=== PATIENT | female | born 1935 | race Caucasian/White ===

== ENCOUNTER → 2017-03-18 | Outpatient (CLI) | payer MEDICARE ==
--- NOTE | 2017-03-18 08:26 | CT ---
EXAMINATION TYPE: CT brain wo con DATE OF EXAM: 03/18/2017 COMPARISON: 04/05/2015 HISTORY: Syncope and Pain in left hip CT DLP: 978.[address] of the brain was performed. The ventricles, basal cisterns and sulci overlying the cerebral convexities demonstrate mild enlargem ent. There is no evidence for intracranial hemorrhage or sulcal effacement. There is decreased attenuation about the periventricular white matter and deep white matter of both c erebral hemispheres, compatible with chronic small vessel ischemia. Differential diagnosis does inclu de demyelination. No mass effects are seen.No midline shift. Osseous calvarium is intact. If symptoms persist consider MRI. IMPRESSION: 1. Age related atrophic and chronic small vessel ischemic change without acute intracranial process s een at this time.
[2017-03-18 08:31] LABS: Basophils # (A) 0.1 k/uL (0-0.2); Basophils % (A) 1 %; CHCM 31.9; Eosinophils # (A) 0.2 k/uL (0-0.7); Eosinophils % (A) 3 %; HCT 37.2 % (34.0-46.0); HDW 2.47; HGB 12.1 gm/dL (11.4-16.0); Luc # (Auto) 0.14; Luc % (Auto) 3; Lymphocytes # (A) 1.7 k/uL (1.0-4.8); Lymphocytes % (A) 29 %; MCH 30.8 pg (25.0-35.0); MCHC 32.6 g/dL (31.0-37.0); MCV 94.3 fL (80.0-100.0); Mean Platelet Volume 7.5; Monocytes # (A) 0.3 k/uL (0-1.0); Monocytes % (A) 5 %; Neutrophils # (A) 3.4 k/uL (1.3-7.7); Neutrophils % (A) 59 %; RBC 3.94 m/uL (3.80-5.40); WBC 5.8 k/uL (3.8-10.6); WBC (Perox) 5.69
--- NOTE | 2017-03-18 08:57 | XR ---
EXAMINATION TYPE: XR lumbar spine 2 or 3V DATE OF EXAM ORDERED: 03/18/2017 HISTORY: M54.5 low back pain. COMPARISON: None. FINDINGS: There is a mild levoscoliosis. Vertebral body height and alignment are maintained. There is generalized osteopenia likely on the bas is of osteoporosis. No fractures are seen. There is no spondylolysis or spondylolisthesis. The spaces are reasonably well-maintained. The pedicles are intact. IMPRESSION: 1. NO ACUTE OSSEOUS LESION. 2. MINIMAL LEVOSCOLIOSIS.
--- NOTE | 2017-03-18 09:12 | US ---
EXAMINATION TYPE: US carotid duplex BILAT DATE OF EXAM: 03/18/2017 COMPARISON: NONE CLINICAL HISTORY: R55 syncope and collapse. Left endarterectomy 2010, dizziness, slurred speech, TIA, imbalance EXAM MEASUREMENTS: RIGHT: Peak Systolic Velocity (PSV) cm/sec ----- Right CCA: 57.0 ----- Right ICA: 344.9 ----- Right ECA: 169.8 ICA/CCA ratio: 6.0 RIGHT: End Diastole cm/sec ----- Right CCA: 15.3 ----- Right ICA: 96.6 ----- Right ECA: 10.9 LEFT: Peak Systolic Velocity (PSV) cm/sec ----- Left CCA: 81.3 ----- Left ICA: 206.0 ----- Left ECA: 164.7 ICA/CCA ratio: 2.5 LEFT: End Diastole cm/sec ----- Left CCA: 18.8 ----- Left ICA: 49.9 ----- Left ECA: 9.1 VERTEBRALS (direction of flow): Right Vertebral: Antegrade Left Vertebral: Antegrade Severe plaque noted right bifurcation. Moderate plaque left bifurcation and left CCA. Increased velo cities bilateral ICA's, greater on the right. Mildly increased velocities bilateral ECA's IMPRESSION: 1. GREATER THAN 70% BY DIAMETER STENOSIS, BOTH PROXIMAL ICAS. 2. ELEVATED ECA FLOW BILATERALLY. Criteria for Assigning % of Stenosis / Diameter reduction (Estimation based on the indirect measurements of the internal carotid artery velocities (ICA PSV). 1. Normal (no stenosis)=ICA PSV < 125 cm/s: ratio < 2.0: ICA EDV<40 cm/s. 2. Less than 50% stenosis=ICA PSV < 125 cm/s: ratio < 2.0: ICA EDV<40 cm/s. 3. 50 to 69% stenosis=ICA PSV of 125 to 230 cm/s: ration 2.0 ? 4.0: ICA EDV 40-100 cm/s. 4. Greater than 70% stenosis to near occlusion= ICA PSV > 230 cm/s: ratio > 4.0: ICA EDV > 100 cm/s. 5. Near occlusion= ICA PSV velocities may be low or undetectable: variable ratio and ICA EDV. 6. Total occlusion=unable to detect flow.
[2017-03-18 11:40] LABS: ALT 22 U/L (9-52); AST 26 U/L (14-36); Alkaline Phosphatase 56 U/L (38-126); Anion Gap 8 mmol/L; Blood Urea Nitrogen 16 mg/dL (7-17); Calcium 9.8 mg/dL (8.4-10.2); Carbon Dioxide 25 mmol/L (22-30); Chloride 113 mmol/L (98-107); Cholesterol 179 mg/dL (<200); Glucose 89 mg/dL (74-99); HDL Cholesterol 61 mg/dL (40-60); Non-African American GFR(MDRD) >60 (>60 ml/min/1.73 sqM); Potassium 5.4 mmol/L (3.5-5.1); Sodium 146 mmol/L (137-145); Total Bilirubin 0.5 mg/dL (0.2-1.3); Total Protein 7.1 g/dL (6.3-8.2); Triglycerides 96 mg/dL (<150)
[2017-03-18 12:40] LABS: Vitamin B12 592 pg/mL
== END | disposition home or self-care (01) ==
LOC: RADUSMAIN 07:52
PROVIDERS: ATTEND Family Medicine
DX: I65.23 Occlusion and stenosis of bilateral carotid arteries (principal); G31.9 Degenerative disease of nervous system, unspecified; I67.82 Cerebral ischemia; M41.86 Other forms of scoliosis, lumbar region; M25.552 Pain in left hip; M54.5 Low back pain
CPT/HCPCS: 36415; 70450; 72100; 80053; 80061; 82607; 82746; 84443; 85025; 93880

== ENCOUNTER → 2017-04-29 | Outpatient (CLI) | payer MEDICARE ==
[2017-04-29 10:04] LABS: Blood Urea Nitrogen 14 mg/dL (7-17); Non-African American GFR(MDRD) >60 (>60 ml/min/1.73 sqM)
--- NOTE | 2017-04-29 11:04 | CT ---
EXAMINATION TYPE: CT angio neck DATE OF EXAM: 04/29/2017 HISTORY: Bilateral carotid stenosis COMPARISON: Carotid ultrasound dated 03/18/2017 CT DLP: 330 mGycm. Automated Exposure Control for Dose Reduction was Utilized. TECHNIQUE: CTA scan of the neck is performed with IV Contrast, patient injected with 65 mL of Omnipa que 350, axial images are obtained, coronal and sagittal reformatted images are reviewed. Three-D rec onstructed images are created on an independent workstation and reviewed. FINDINGS: Right vertebral artery is dominant and widely patent. Suggestion of possible stent at the o rigin of the left common carotid artery which appears to be patent. Mild atherosclerotic plaque invol ving the brachiocephalic artery, proximal, right carotid artery and right subclavian artery. Appears to be previous surgery involving the carotid to subclavian bypass with occlusion of the [place] origin of the subclavian artery. Mild atherosclerotic disease of the distal left common carotid artery. There is mild disease at the l eft carotid bifurcation and proximal left ICA. No significant stenosis. There is extensive atherosclerotic plaque involving the carotid bulb and bifurcation on the right res idual luminal diameter measures 1.4 mm. Findings are suggestive severe approximate 75-80% stenosis. Hypertrophic and degenerative change of the cervical spine noted. Emphysematous changes involving the lung apices with biapical pleural thickening or scarring. IMPRESSION: 1. Severe approximately 80% stenosis proximal right ICA. 2. No significant hemodynamic stenosis involving the proximal left ICA 3. Appears to be previous surgery involving the carotid to subclavian bypass with occlusion of the na tive origin of the subclavian artery. Suspected graft appears to be patent. Correlate with surgical h istory. 4. Appears to be a stent at the origin of the left common carotid artery appears to enhance normally with left lateral eccentric intimal thickening but no significant stenosis.
== END | disposition home or self-care (01) ==
LOC: RADCTMAIN 09:33
PROVIDERS: ATTEND Thoracic Surgery (Cardiothoracic Vascular Surgery)
DX: I65.23 Occlusion and stenosis of bilateral carotid arteries (principal); I74.8 Embolism and thrombosis of other arteries; Z95.1 Presence of aortocoronary bypass graft
CPT/HCPCS: 82565; 84520; 70498; 36415; Q9967

== ENCOUNTER → 2017-06-08 | Outpatient (CLI) | payer MEDICARE ==
[2017-06-08 09:04] LABS: EKG EKG PERFORMED
[2017-06-08 10:05] LABS: Basophils % (A) 1 %; CH 30.8; CHCM 31.8; Eosinophils # (A) 0.1 k/uL (0-0.7); Eosinophils % (A) 2 %; HDW 2.39; HGB 13.1 gm/dL (11.4-16.0); Luc # (Auto) 0.14; Luc % (Auto) 3; Lymphocytes # (A) 1.6 k/uL (1.0-4.8); Lymphocytes % (A) 31 %; MCH 30.5 pg (25.0-35.0); MCHC 31.3 g/dL (31.0-37.0); MCV 97.4 fL (80.0-100.0); Mean Platelet Volume 8.1; Monocytes # (A) 0.3 k/uL (0-1.0); Monocytes % (A) 5 %; Neutrophils # (A) 3.1 k/uL (1.3-7.7); Neutrophils % (A) 59 %; RBC 4.31 m/uL (3.80-5.40); RDW 14.7 % (11.5-15.5); WBC 5.3 k/uL (3.8-10.6); WBC (Perox) 5.68
[2017-06-08 10:08] LABS: Prothrombin Time 10.6 sec (9.0-12.0)
[2017-06-08 10:25] LABS: Anion Gap 8 mmol/L; Blood Urea Nitrogen 11 mg/dL (7-17); Carbon Dioxide 24 mmol/L (22-30); Chloride 109 mmol/L (98-107); Glucose 88 mg/dL (74-99); Non-African American GFR(MDRD) >60 (>60 ml/min/1.73 sqM); Potassium 4.8 mmol/L (3.5-5.1); Sodium 141 mmol/L (137-145)
== END | disposition home or self-care (01) ==
LOC: LABPAT 08:46
PROVIDERS: ATTEND Thoracic Surgery (Cardiothoracic Vascular Surgery)
DX: Z01.810 Encounter for preprocedural cardiovascular examination (principal); I65.21 Occlusion and stenosis of right carotid artery; I10 Essential (primary) hypertension; Z79.01 Long term (current) use of anticoagulants
CPT/HCPCS: 36415; 80051; 82565; 82947; 84520; 85025; 85610; 85730; 87077; 87086; 87186; 93005

== ENCOUNTER → 2017-07-16 | Outpatient (CLI) | payer MEDICARE ==
[2017-07-16 10:15] LABS: Basophils # (A) 0.1 k/uL (0-0.2); Basophils % (A) 1 %; CH 29.9; CHCM 30.3; Eosinophils # (A) 0.2 k/uL (0-0.7); Eosinophils % (A) 3 %; HCT 41.3 % (34.0-46.0); HDW 2.43; HGB 12.8 gm/dL (11.4-16.0); Hypochromasia Moderate; Luc # (Auto) 0.13; Luc % (Auto) 2; Lymphocytes # (A) 1.5 k/uL (1.0-4.8); Lymphocytes % (A) 25 %; MCH 30.9 pg (25.0-35.0); MCV 99.4 fL (80.0-100.0); Mean Platelet Volume 7.3; Monocytes # (A) 0.3 k/uL (0-1.0); Monocytes % (A) 5 %; Neutrophils % (A) 65 %; RBC 4.15 m/uL (3.80-5.40); RDW 14.3 % (11.5-15.5); WBC 6.2 k/uL (3.8-10.6); WBC (Perox) 6.51
[2017-07-16 10:26] LABS: Partial Thromboplastin Time 25.8 sec (22.0-30.0); Prothrombin Time 10.2 sec (9.0-12.0)
[2017-07-16 10:44] LABS: Anion Gap 12 mmol/L; Blood Urea Nitrogen 12 mg/dL (7-17); Carbon Dioxide 23 mmol/L (22-30); Chloride 108 mmol/L (98-107); Glucose 89 mg/dL (74-99); Potassium 4.9 mmol/L (3.5-5.1); Sodium 143 mmol/L (137-145)
[2017-07-16 10:45] LABS: Non-African American GFR(MDRD) >60 (>60 ml/min/1.73 sqM)
== END | disposition home or self-care (01) ==
LOC: LABPAT 09:04
PROVIDERS: ATTEND Thoracic Surgery (Cardiothoracic Vascular Surgery)
DX: Z01.812 Encounter for preprocedural laboratory examination (principal); I65.21 Occlusion and stenosis of right carotid artery; Z79.01 Long term (current) use of anticoagulants
CPT/HCPCS: 80051; 82565; 82947; 84520; 85025; 85610; 85730; 86850; 86900; 86901; 87086

== ENCOUNTER 2017-07-25 10:55 | Inpatient (IN) | payer MEDICARE ==
[2017-07-07 15:00] VITALS: BMI 22.6
[~2017-07-25 10:55] MED LIST: DEXAMETHASONE SOD PHOSPHATE 10 MG/ML 1 ML VIAL IV ONE; HYDROmorphone 0.5 MG/0.5 ML SYRINGE IVP PRN; LACTATED RINGERS 1,000 ML IV SCH; NITROGLYCERIN-D5W PMX 50 MG in DEXTROSE/WATER 1 250ML.BAG IV SCH; ONDANSETRON 4 MG/2 ML VIAL IVP ONE; PHENYLEPHRINE 40 MG in SODIUM CHLORIDE 0.9% 250 ML IV SCH
[2017-07-25] MEDS ORDERED: LIDOCAINE 1% 20 ML VIAL (10MG/ML) FOR IV START INTRADERMA ONE (11:36)
[2017-07-25] MEDS ORDERED: GELATIN SPONGE,ABSORB (LARGE) 1 EACH SPONGE TOPICAL ONE (13:21)
[2017-07-25] MEDS ORDERED: THROMBIN (BOVINE) 5,000 UNIT VIAL TOPICAL ONE ×2 (13:21)
[2017-07-25] MEDS ORDERED: MIDAZOLAM 2 MG/2 ML VIAL ONE (13:27)
[2017-07-25] MEDS ORDERED: GLYCOPYRROLATE 0.2 MG/ML 2 ML VIAL ONE (13:27)
[2017-07-25] MEDS ORDERED: HEPARIN SODIUM,PORCINE 10,000 UNIT/ML 1 ML VIAL ONE (13:27)
[2017-07-25] MEDS ORDERED: ROCURONIUM BROMIDE 10 MG/ML 10 ML VIAL IV ONE (13:27)
[2017-07-25] MEDS ORDERED: PROPOFOL 10 MG/ML 20 ML VIAL IV ONE (13:27)
[2017-07-25] MEDS ORDERED: fentaNYL (PF) 50 MCG/ML 2 ML AMP ONE (13:27)
[2017-07-25] MEDS: ceFAZolin 2 GM in SODIUM CHLORIDE 0.9% 100 ML IVPB ONE ×2 (13:27→13:55)
[2017-07-25] MEDS ORDERED: NEOSTIGMINE 1 MG/ML 10 ML VIAL ONE (13:27)
[2017-07-25] MEDS ORDERED: HYDROmorphone (PF) 1 MG/ML ONE (13:27)
[2017-07-25] MEDS ORDERED: SUCCINYLCHOLINE CHLORIDE 100 MG/5 ML SYR IV ONE (13:27)
[2017-07-25] MEDS ORDERED: LIDOCAINE 1% INJ 10MG/ML (20 ML MDV) ONE (13:27)
[2017-07-25] MEDS ORDERED: hydrALAZINE HCL 20 MG/ML 1 ML VIAL ONE (13:27)
[2017-07-25] MEDS ORDERED: METOPROLOL TARTRATE 5 MG/5 ML VIAL IVP ONE (13:27)
--- NOTE | 2017-07-25 13:40 | P.OP ---
Date of Procedure: 07/25/17 Preoperative Diagnosis: Right internal carotid artery stenosis Postoperative Diagnosis: Right internal carotid artery stenosis Procedure(s) Performed: Right internal carotid endarterectomy and Dacron patch angioplasty Anesthesia: RENETTAA Surgeon: Wolfgang Baugh Estimated Blood Loss (ml): 50 Pathology: other (Atherosclerotic plaque) Condition: stable Disposition: ICU Description of Procedure: Patient was brought electively to the operating room for right internal carotid artery endarterectomy she was prepped and draped in usual sterile Betadine fashion under general anesthesia an incision on the anterior border the sternocleidomastoid was carried down through skin and subcutaneous tissue and electrocautery was utilized for hemostasis heparin was administered and control of the carotid artery was then affected the carotid artery was opened through the high-grade stenosis in a meticulous carotid endarterectomy was performed using a Pearcy dural elevator and a fine hemostat loupe magnification was utilized throughout the procedure and intimal debris was completely removed backbleeding and venting the external carotid artery as well we close the endarterectomized vessel with a Hemashield background patch utilizing 6-0 Prolene suture we backbled and vented the vessel of any potential air or debris restored blood flow to the brain throughout the procedure the patient had neural monitoring with S SPEP and EEG by [employer] patient tolerated these procedures well and the neck was closed in layers with Vicryl sutures and Steri- Strips C end of an operative report thank you for typing
[2017-07-25] MEDS ORDERED: SODIUM CHLORIDE 0.9% 500 ML with HEPARIN SODIUM,PORCINE 5,000 UNIT IV ONE ×2 (13:55)
[2017-07-25] MEDS ORDERED: LACTATED RINGERS 1,000 ML IV ONE ×2 (14:16→15:20)
[2017-07-25] MEDS ORDERED: ACETAMINOPHEN TAB 325 MG TAB PO PRN (14:57)
[2017-07-25] MEDS ORDERED: MAG HYDROX/AL HYDROX/SIMETH 30 ML CUP PO PRN (14:57)
[2017-07-25] MEDS ORDERED: BENZOCAINE/MENTHOL LOZENG 1 EACH LOZENGE MUCOUS MEM PRN (14:57)
[2017-07-25] MEDS ORDERED: TRIMETHOBENZAMIDE 100 MG/ML 2 ML VIAL IM PRN (14:57)
[2017-07-25] MEDS ORDERED: TEMAZEPAM 15 MG CAP PO PRN (14:57)
[2017-07-25 17:26] LABS: Glucose,Whole Blood 96 mg/dL (75-99)
[2017-07-25] MEDS: HEPARIN SODIUM,PORCINE 5,000 UNIT/ML 1 ML VIAL SQ SCH ×2 (17:29→23:55)
[2017-07-25] MEDS: DEXTROSE 5%-0.45% NACL 1,000 ML IV SCH ×2 (17:29→22:57)
[2017-07-25] MEDS: HYDROcodone/APAP 5-325MG 1 EACH TAB PO PRN (18:26)
[2017-07-25] MEDS: PRAVASTATIN SODIUM 20 MG TAB PO SCH (20:38)
[2017-07-25] MEDS ORDERED: LISINOPRIL 2.5 MG TAB PO SCH (21:00)
[2017-07-25] MEDS: ceFAZolin 2 GM in SODIUM CHLORIDE 0.9% 100 ML IVPB SCH (21:58)
[2017-07-25] MEDS: MORPHINE SULFATE 2 MG/ML SYRINGE IVP PRN (21:58)
[2017-07-25] MEDS ORDERED: SODIUM CHLORIDE 0.9% 500 ML IV ONE (22:30)
[2017-07-26 04:21] LABS: Basophils % (A) 0 %; CH 30.9; CHCM 31.9; Eosinophils % (A) 0 %; HCT 32.6 % (34.0-46.0); HDW 2.44; HGB 10.3 gm/dL (11.4-16.0); Luc # (Auto) 0.09; Luc % (Auto) 1; Lymphocytes # (A) 0.9 k/uL (1.0-4.8); Lymphocytes % (A) 8 %; MCH 30.9 pg (25.0-35.0); MCHC 31.7 g/dL (31.0-37.0); MCV 97.4 fL (80.0-100.0); Mean Platelet Volume 8.1; Monocytes # (A) 0.4 k/uL (0-1.0); Monocytes % (A) 4 %; Neutrophils # (A) 9.2 k/uL (1.3-7.7); Neutrophils % (A) 87 %; RBC 3.35 m/uL (3.80-5.40); RDW 14.9 % (11.5-15.5); WBC 10.6 k/uL (3.8-10.6); WBC (Perox) 11.16
[2017-07-26 04:33] LABS: ALT 28 U/L (9-52); AST 20 U/L (14-36); Alkaline Phosphatase 53 U/L (38-126); Anion Gap 5 mmol/L; Blood Urea Nitrogen 10 mg/dL (7-17); Calcium 8.3 mg/dL (8.4-10.2); Carbon Dioxide 22 mmol/L (22-30); Chloride 109 mmol/L (98-107); Glucose 155 mg/dL (74-99); Non-African American GFR(MDRD) >60 (>60 ml/min/1.73 sqM); Potassium 4.3 mmol/L (3.5-5.1); Sodium 136 mmol/L (137-145); Total Bilirubin 0.3 mg/dL (0.2-1.3); Total Protein 5.3 g/dL (6.3-8.2)
[2017-07-26] MEDS: DEXTROSE 5%-0.45% NACL 1,000 ML IV SCH ×2 (04:37→14:08)
[2017-07-26] MEDS: LEVOTHYROXINE 25 MCG TAB PO SCH (05:48)
[2017-07-26] MEDS: ceFAZolin 2 GM in SODIUM CHLORIDE 0.9% 100 ML IVPB SCH (05:48)
[2017-07-26] MEDS: HYDROcodone/APAP 5-325MG 1 EACH TAB PO PRN ×3 (06:27→18:19)
--- NOTE | 2017-07-26 08:08 | P.PN ---
Subjective Progress Note Date: 07/26/17 Principal diagnosis: Right internal carotid artery stenosis, hypertension, hyperlipidemia, hypothyroidism, GERD, chronic obstructive pulmonary disease, history of coronary artery disease status post coronary artery bypass grafting 5 in 1999, history of non-STEMI myocardial infarction in 2015 and nicotine dependence. POD #1 right internal carotid endarterectomy with Dacron patch angioplasty. Patient is currently sitting in bed eating her breakfast. She is complaining of some pain to her right neck incision rated 3 out of 10 on the pain scale. No acute distress. She reports she ambulated in the ICU hallway this a.m. which was tolerated well. She is anxious to go home. Objective - Vital Signs Vital signs: Vital Signs Temp 97.9 F 07/26/17 04:00 Pulse 59 L 07/26/17 07:00 Resp 12 07/26/17 07:00 BP 129/49 07/26/17 07:00 Pulse Ox 100 07/26/17 07:00 Intake & Output 07/25/17 07/26/17 07/26/17 18:59 06:59 18:59 Intake Total 2676 1990 245 Output Total 510 905 Balance 2166 1085 245 Weight 61.2 kg Intake: IV 2676 1750 125 Dextrose 5%-0.45% NaCl 1, 75 1050 125 000 ml @ 125 mls/hr IV . Q8H DAWNA Rx#:[id number] Sodium Chloride 0.9% 500 500 ml @ 999 mls/hr IV .Q31M ONE Rx#:[id number] ceFAZolin 2 gm In Sodium 200 Chloride 0.9% 100 ml @ 100 mls/hr IVPB ONCE ONE Rx#:[id number] Oral 240 120 Output: Urine 460 905 Estimated Blood Loss 50 Other: Voiding Method Indwelling Catheter ABP, PAP, CO, CI - Last Documented Arterial Blood Pressure 141/37 - Constitutional General appearance: Present: cooperative, no acute distress - EENT Eyes: Present: PERRLA ENT: Present: hearing grossly normal - Neck Details: No JVD, no lymphadenopathy. - Respiratory Details: Lung sounds are essentially clear throughout, diminished bilateral bases. Respirations are symmetrical and nonlabored. She is achieving 750 mL on her incentive spirometry. Her oxygen saturation is are 98% on room air. - Cardiovascular Details: Regular rhythm and rate. S1 and S2 present, negative for S3, gallop or murmur. No edema present. Bedside telemetry showing normal sinus rhythm heart rate 67. Knee-high HARRIET hose and sequential compression devices in place to her bilateral lower extremities. - Gastrointestinal Gastrointestinal Comment(s): Abdomen is soft, nontender and nondistended. Hypoactive bowel sounds to all 4 abdominal quadrants. She is tolerating oral intake. - Genitourinary Genitourinary Comment(s): Adequate urine output, Cha catheter for accurate I&O. 585 ml of urine output in the last 8 hours. - Integumentary Integumentary Comment(s): Right neck incision clean dry and well approximated. Scant serosanguineous drainage. Steri-Strips in place to right neck incision. Integumentary: Present: normal, normal turgor - Neurologic Neurologic Comment(s): No focal deficits. Neurologic: Present: CNII-XII intact - Musculoskeletal Musculoskeletal: Present: gait normal, strength equal bilaterally - Psychiatric Psychiatric: Present: A&O x's 3, appropriate affect, intact judgment & insight - Allied health notes Allied health notes reviewed: nursing - Labs CBC & Chem 7: 07/26/17 04:00 07/26/17 04:00 Labs: Abnormal Lab Results - Last 24 Hours (Table) 07/26/17 07/26/17 Range/Units 04:00 04:00 RBC 3.35 L (3.80-5.40) m/uL Hgb 10.3 L (11.4-16.0) gm/dL Hct 32.6 L (34.0-46.0) % Neutrophils # 9.2 H (1.3-7.7) k/uL Lymphocytes # 0.9 L (1.0-4.8) k/uL Sodium 136 L (137-145) mmol/L Chloride 109 H (98-107) mmol/L Glucose 155 H (74-99) mg/dL Calcium 8.3 L (8.4-10.2) mg/dL Total Protein 5.3 L (6.3-8.2) g/dL Albumin 2.7 L (3.5-5.0) g/dL Assessment and Plan (1) Stenosis of right internal carotid artery Status: Acute (2) GERD (gastroesophageal reflux disease) Status: Acute (3) COPD (chronic obstructive pulmonary disease) Status: Acute (4) HTN (hypertension) Status: Acute (5) Hx of CABG Status: Acute (6) Hyperlipemia Status: Acute (7) Nicotine dependence Status: Acute Plan: 1. Continue aspirin, statin, Plavix, heparin subcu, and beta shobha. 2. Encourage incentive spirometer use every hour while awake. 3. Increase activity, ambulate in hallway. 4. GI/DVT prophylaxis. 5. Will monitor daily labs. 6. Discussed the importance of smoking cessation with the patient. 7. More recommendations as patient progresses. Discharge planning in progress. Likely will discharged home today. Time with Patient: Greater than 30
[2017-07-26] MEDS: HEPARIN SODIUM,PORCINE 5,000 UNIT/ML 1 ML VIAL SQ SCH ×3 (08:16→23:16)
[2017-07-26] MEDS: ISOSORBIDE MONONITRATE ER 60 MG TAB.ER.24H PO SCH (08:17)
[2017-07-26] MEDS: ASPIRIN 81 MG PO SCH (08:17)
[2017-07-26] MEDS: CLOPIDOGREL 75 MG TAB PO SCH (08:18)
[2017-07-26] MEDS: METOPROLOL TARTRATE 25 MG TAB PO SCH (08:19)
[2017-07-26] MEDS: MORPHINE SULFATE 2 MG/ML SYRINGE IVP PRN ×2 (09:05→14:08)
--- NOTE | 2017-07-26 14:48 | P.CONS ---
History of Present Illness - Reason for Consult Management of hypertension. - History of Present Illness -year-old the female came in for elective right internal carotid endarterectomy , for right-sided carotid stenosis. Patient denied any fever, chills, nausea, vomiting, abdominal pain, dysuria. Patient is comparing of lightheadedness blood pressure is on the low normal systolics. Less trouble is being held the low blood pressure is expected post surgery. Review of Systems REVIEW OF SYSTEMS: CONSTITUTIONAL: No fever, no malaise, no fatigue. HEENT: No recent visual problems or hearing problems. Denied any sore throat. CARDIOVASCULAR: No chest pain, orthopnea, PND, no palpitations, no syncope. PULMONARY: No shortness of breath, no cough, no hemoptysis. GASTROINTESTINAL: No diarrhea, no nausea, no vomiting, no abdominal pain. Normoactive bowel sounds. NEUROLOGICAL: No headaches, no weakness, no numbness. HEMATOLOGICAL: Denies any bleeding or petechiae. GENITOURINARY: Denies any burning micturition, frequency, or urgency. MUSCULOSKELETAL/RHEUMATOLOGICAL: Denies any joint pain, swelling, or any muscle pain. ENDOCRINE: Denies any polyuria or polydipsia. The rest of the 14-point review of systems is negative. Past Medical History Past Medical History: Coronary Artery Disease (CAD), COPD, CVA/TIA, Deep Vein Thrombosis (DVT), Hyperlipidemia, Hypertension, Myocardial Infarction ([place]), Osteoarthritis (OA), Thyroid Disorder Additional Past Medical History / Comment(s): DVT leg in 1972, disc problems, ear problems & drainage @times, states has "left sided heart blockage and 2 holes in heart" Last Myocardial Infarction Date:: 05/11/15 History of Any Multi-Drug Resistant Organisms: None Reported Past Surgical History: Appendectomy, Coronary Bypass/CABG, Heart Catheterization , Heart Catheterization With Stent, Hysterectomy Additional Past Surgical History / Comment(s): left carotid endarterectomy, 5 vessel CABG 1999, nasal surg, polyps removed vocal cords, mult stents in heart Past Anesthesia/Blood Transfusion Reactions: Previous Problems w/ Anesthesia Additional Past Anesthesia/Blood Transfusion Reaction / Comm: some kind of medication injection given during nasal surg. that caused vision problems for 3 mos.-doesn't know what it was Date of Last Stent Placement:: 05/11/15 Smoking Status: Current every day smoker - Past Family History Mother History Unknown: Yes Additional Family Medical History / Comment(s): pt adopted, biological hx unknown. Has sister also, but never able to contact. Medications and Allergies Home Medications Medication Instructions Recorded Confirmed Type Aspirin 81 mg PO DAILY 01/22/15 07/25/17 History Clopidogrel [Plavix] 75 mg PO DAILY 01/22/15 07/25/17 History Levothyroxine Sodium [Synthroid] 25 mcg PO DAILY 01/22/15 07/25/17 History Lisinopril [Zestril] 2.5 mg PO HS 01/22/15 07/25/17 History Metoprolol Tartrate [Lopressor] 25 mg PO DAILY 01/22/15 07/25/17 History Nitroglycerin Sl Tabs [Nitrostat] 0.4 mg SUBLINGUAL Q5M PRN 01/22/15 07/25/17 History Pravastatin Sodium [Pravachol] 20 mg PO HS 08/21/15 07/25/17 History Esomeprazole Magnesium [NexIUM] 40 mg PO HS PRN 09/07/16 07/25/17 History HYDROcodone/APAP 5-325MG [[place] 1 tab PO Q6HR PRN #20 tab 09/07/16 07/25/17 Rx 5-325] Isosorbide Mononitrate [Imdur] 120 mg PO DAILY 07/25/17 07/25/17 History Allergies Allergy/AdvReac Type Severity Reaction Status Date / Time erythromycin base Allergy Unknown Verified 07/25/17 11:06 [From E-Mycin] Penicillins Allergy Unknown Verified 07/25/17 11:06 Childhood atorvastatin calcium AdvReac unable to Verified 07/25/17 11:06 [From Lipitor] walk cortisone AdvReac HEART Verified 07/25/17 11:06 ATTACK Physical Exam Vitals: Vital Signs Temp Pulse Pulse Resp BP BP Pulse Ox 07/26/17 14:00 65 22 114/45 95 07/26/17 13:00 71 24 99/44 96 07/26/17 12:00 98.7 F 54 L 11 L 100/77 97 07/26/17 11:00 68 20 107/43 94 L 07/26/17 10:00 63 16 120/44 98 07/26/17 09:00 57 L 16 108/48 88 L 07/26/17 08:00 98.2 F 71 16 140/46 94 L 07/26/17 07:00 59 L 12 129/49 100 07/26/17 06:00 78 20 138/51 99 07/26/17 05:00 61 21 120/45 100 07/26/17 04:00 97.9 F 77 20 131/60 93 L 07/26/17 03:00 54 L 14 121/41 99 07/26/17 02:00 66 12 118/45 98 07/26/17 01:00 69 20 108/41 98 07/26/17 00:00 97.6 F 65 12 119/40 99 07/25/17 23:00 64 12 100 07/25/17 22:15 52 L 12 115/47 99 07/25/17 22:00 57 L 16 99 07/25/17 21:45 50 L 12 100 07/25/17 21:30 56 L 12 99 07/25/17 21:15 53 L 16 100 07/25/17 21:00 97.5 F L 59 L 16 100 07/25/17 20:45 54 L 12 99 07/25/17 20:30 65 17 99 07/25/17 20:15 65 16 94 L 07/25/17 20:00 95.5 F L 64 12 98 07/25/17 19:45 52 L 12 100 07/25/17 19:30 57 L 11 L 98 07/25/17 19:15 50 L 13 100 07/25/17 19:00 54 L 15 98 07/25/17 18:45 63 27 H 98 07/25/17 18:30 63 22 96 07/25/17 18:15 66 18 99 07/25/17 18:00 55 L 18 93 L 07/25/17 17:50 51 L 8 L 97 07/25/17 17:40 50 L 10 L 97 07/25/17 17:30 97.6 F 56 L 14 98 07/25/17 16:45 53 L 16 97/48 97 07/25/17 16:30 54 L 16 96/46 97 07/25/17 16:15 56 L 16 106/51 97 07/25/17 16:00 53 L 18 105/51 93 L 07/25/17 15:45 59 L 16 120/59 99 07/25/17 15:41 97.1 F L 73 16 118/56 97 Intake and Output 07/25/17 07/26/17 07/26/17 22:59 06:59 14:59 Intake Total 995 1570 1800 Output Total 655 760 900 Balance 340 810 900 Intake: IV 875 1450 1000 Dextrose 5%-0.45% NaCl 1, 829 819 1297 000 ml @ 125 mls/hr IV . Q8H DAWNA Rx#:[id number] Sodium Chloride 0.9% 500 500 ml @ 999 mls/hr IV .Q31M ONE Rx#:[id number] ceFAZolin 2 gm In Sodium 200 Chloride 0.9% 100 ml @ 100 mls/hr IVPB ONCE ONE Rx#:[id number] Oral 120 120 800 Output: Urine 605 760 900 Estimated Blood Loss 50 Other: Voiding Method Indwelling Catheter Indwelling Catheter Toilet Weight 61.2 kg PHYSICAL EXAMINATION: GENERAL: The patient is alert and oriented x3, not in any acute distress. Well developed, well nourished. HEENT: Pupils are round and equally reacting to light. EOMI. No scleral icterus. No conjunctival pallor. Normocephalic, atraumatic. No pharyngeal erythema. No thyromegaly. Surgical dressing on the Right side of the neck. CARDIOVASCULAR: S1 and S2 present. No murmurs, rubs, or gallops. PULMONARY: Chest is clear to auscultation, no wheezing or crackles. ABDOMEN: Soft, nontender, nondistended, normoactive bowel sounds. No palpable organomegaly. MUSCULOSKELETAL: No joint swelling or deformity. EXTREMITIES: No cyanosis, clubbing, or pedal edema. NEUROLOGICAL: Gross neurological examination did not reveal any focal deficits. SKIN: No rashes. Results CBC & Chem 7: 07/26/17 04:00 07/26/17 04:00 Labs: Abnormal Lab Results - Last 24 Hours (Table) 07/26/17 07/26/17 Range/Units 04:00 04:00 RBC 3.35 L (3.80-5.40) m/uL Hgb 10.3 L (11.4-16.0) gm/dL Hct 32.6 L (34.0-46.0) % Neutrophils # 9.2 H (1.3-7.7) k/uL Lymphocytes # 0.9 L (1.0-4.8) k/uL Sodium 136 L (137-145) mmol/L Chloride 109 H (98-107) mmol/L Glucose 155 H (74-99) mg/dL Calcium 8.3 L (8.4-10.2) mg/dL Total Protein 5.3 L (6.3-8.2) g/dL Albumin 2.7 L (3.5-5.0) g/dL Assessment and Plan Plan: Jeannette postoperative day one right carotid endarterectomy: Pain management as per primary service. #2 COPD without any acute exacerbation #3 history of DVT in the past #4 hyperlipidemia #5 hypertension patient is hypotensive hold off on lisinopril which is expected postsurgically. #6 hypothyroidism 7 osteoarthritis #8 coronary artery disease For above-mentioned chronic medical problems are good and continue appropriate medications and medication reconciliation was done
[2017-07-26] MEDS: PRAVASTATIN SODIUM 20 MG TAB PO SCH (20:27)
[2017-07-27] MEDS: HYDROcodone/APAP 5-325MG 1 EACH TAB PO PRN ×2 (05:38→15:19)
[2017-07-27] MEDS: LEVOTHYROXINE 25 MCG TAB PO SCH (06:24)
[2017-07-27] MEDS: ISOSORBIDE MONONITRATE ER 60 MG TAB.ER.24H PO SCH (07:31)
[2017-07-27] MEDS: ASPIRIN 81 MG PO SCH (07:32)
[2017-07-27] MEDS: METOPROLOL TARTRATE 25 MG TAB PO SCH (07:32)
[2017-07-27] MEDS: HEPARIN SODIUM,PORCINE 5,000 UNIT/ML 1 ML VIAL SQ SCH ×2 (07:32→15:20)
[2017-07-27] MEDS: CLOPIDOGREL 75 MG TAB PO SCH (08:04)
[2017-07-27 08:07] LABS: CH 30.2; CHCM 30.6; HDW 2.45; Hypochromasia Moderate; MCH 31.3 pg (25.0-35.0); MCHC 31.5 g/dL (31.0-37.0); MCV 99.4 fL (80.0-100.0); Mean Platelet Volume 7.5; RBC 3.52 m/uL (3.80-5.40); RDW 14.4 % (11.5-15.5); WBC 6.7 k/uL (3.8-10.6)
[2017-07-27 08:23] LABS: Anion Gap 7 mmol/L; Blood Urea Nitrogen 6 mg/dL (7-17); Calcium 8.7 mg/dL (8.4-10.2); Carbon Dioxide 24 mmol/L (22-30); Chloride 111 mmol/L (98-107); Glucose 86 mg/dL (74-99); Non-African American GFR(MDRD) >60 (>60 ml/min/1.73 sqM); Potassium 4.2 mmol/L (3.5-5.1); Sodium 142 mmol/L (137-145)
--- NOTE | 2017-07-27 14:05 | P.PN ---
<Hunter Bolden - Last Filed: 07/27/17 14:04> Subjective Progress Note Date: 07/27/17 Principal diagnosis: Right internal carotid artery stenosis, hypertension, hyperlipidemia, hypothyroidism, GERD, chronic obstructive pulmonary disease, history of coronary artery disease status post coronary artery bypass grafting 5 in 1999, history of non-STEMI myocardial infarction in 2014 and nicotine dependence. POD #2 right internal carotid endarterectomy with Dacron patch angioplasty. Patient is currently sitting up to the edge of her bed eating her breakfast. She is complaining of some pain to her right neck incision rated 3 out of 10 on the pain scale. No acute distress. She reports she is having some episodes of dizziness when ambulating. She also reports that the dizziness goes away as soon as she sits down. She states that she has had these episodes of dizziness preoperatively. Objective - Vital Signs Vital signs: Vital Signs Temp 97.2 F L 07/27/17 04:00 Pulse 78 07/27/17 04:00 Resp 16 07/27/17 04:00 BP 155/72 07/27/17 04:00 Pulse Ox 93 L 07/27/17 04:00 Intake & Output 07/26/17 07/27/17 07/27/17 18:59 06:59 18:59 Intake Total 2415 Output Total 1700 Balance 715 Weight 58.2 kg Intake: IV 1375 Dextrose 5%-0.45% NaCl 1, 1375 000 ml @ 125 mls/hr IV . Q8H DAWNA Rx#:[id number] Oral 1040 Output: Urine 1700 Other: Voiding Method Toilet Toilet # Voids 1 0 ABP, PAP, CO, CI - Last Documented Arterial Blood Pressure 141/37 - Constitutional General appearance: Present: cooperative, no acute distress, thin - EENT Eyes: Present: PERRLA ENT: Present: hearing grossly normal - Neck Details: No JVD, no lymphadenopathy. Carotids: left: bruit present - Respiratory Details: Lung sounds are essentially clear throughout. Respirations are symmetrical and nonlabored. Current oxygen saturation saturations are 93% on room air. She is achieving 1000 mL on her incentive spirometry. - Cardiovascular Details: Regular rhythm and rate. S1 and S2 present, systolic murmur 2/6 heard best to her right sternal border. Remote telemetry showing normal sinus rhythm heart rate 68. Knee-high HARRIET hose and sequential compression devices in place to her bilateral lower extremities. - Gastrointestinal Gastrointestinal Comment(s): Abdomen is soft, nontender and nondistended. Active bowel sounds to all 4 abdominal quadrants. She is tolerating oral intake. - Genitourinary Genitourinary Comment(s): Urine output adequate. Clear yellow urine. - Integumentary Integumentary Comment(s): Right neck incision clean dry and well approximated. Steri-Strips intact. No drainage noted. Integumentary: Present: normal, normal turgor - Neurologic Neurologic Comment(s): No focal deficits. Neurologic: Present: CNII-XII intact - Musculoskeletal Musculoskeletal: Present: gait normal, strength equal bilaterally - Psychiatric Psychiatric: Present: A&O x's 3, appropriate affect, intact judgment & insight - Allied health notes Allied health notes reviewed: nursing - Labs CBC & Chem 7: 07/27/17 07:48 07/27/17 07:48 Labs: Abnormal Lab Results - Last 24 Hours (Table) 07/27/17 07/27/17 Range/Units 07:48 07:48 RBC 3.52 L (3.80-5.40) m/uL Hgb 11.0 L (11.4-16.0) gm/dL Chloride 111 H (98-107) mmol/L BUN 6 L (7-17) mg/dL Assessment and Plan (1) Stenosis of right internal carotid artery Status: Acute (2) GERD (gastroesophageal reflux disease) Status: Acute (3) COPD (chronic obstructive pulmonary disease) Status: Acute (4) HTN (hypertension) Status: Acute (5) Hx of CABG Status: Acute (6) Hyperlipemia Status: Acute (7) Nicotine dependence Status: Acute (8) Dizziness, nonspecific Status: Acute Plan: 1. Continue aspirin, statin, Plavix, heparin subcu, and beta shobha. 2. Encourage incentive spirometer use every hour while awake. 3. Increase activity, ambulate in hallway. 4. GI/DVT prophylaxis. 5. Will monitor daily labs. 6. Discussed the importance of smoking cessation with the patient. 7. More recommendations as patient progresses. Discharge planning in progress. Likely will discharged home within the next 24 hours. Time with Patient: Greater than 30 <Jude Song - Last Filed: 07/27/17 14:31> Subjective Patient complains that she has a lot of running of her nose and drainage from her right eye. She sometimes gets some mild blurring in the right eye. She denies blacking out of the vision or visual field loss. She denies motor function issues. She still has some lightheadedness and dizziness. Her blood pressures vary from 105-168. She has no focal deficits on examination. Her neck is healing quite nicely. In general she is improving nicely post right carotid endarterectomy. Her symptoms do not sound vascular in origin. Hopefully internal medicine we will adjust her blood pressure medications well enough to decrease the fluctuance and blood pressure which may improve her dizziness. Objective - Vital Signs Vital signs: Vital Signs Temp 96.3 F L 07/27/17 11:37 Pulse 71 07/27/17 11:37 Resp 18 07/27/17 11:37 BP 127/60 07/27/17 11:37 Pulse Ox 93 L 07/27/17 11:37 Intake & Output 07/26/17 07/27/17 07/27/17 18:59 06:59 18:59 Intake Total 2415 240 Output Total 1700 300 Balance 715 -60 Weight 58.2 kg Intake: IV 1375 Dextrose 5%-0.45% NaCl 1, 1375 000 ml @ 125 mls/hr IV . Q8H DAWNA Rx#:[id number] Oral 1040 240 Output: Urine 1700 300 Other: Voiding Method Toilet Toilet # Voids 1 1 # Bowel Movements 0 ABP, PAP, CO, CI - Last Documented Arterial Blood Pressure 141/37 - Labs CBC & Chem 7: 07/27/17 07:48 07/27/17 07:48 Labs: Abnormal Lab Results - Last 24 Hours (Table) 07/27/17 07/27/17 Range/Units 07:48 07:48 RBC 3.52 L (3.80-5.40) m/uL Hgb 11.0 L (11.4-16.0) gm/dL Chloride 111 H (98-107) mmol/L BUN 6 L (7-17) mg/dL
[2017-07-27 15:58] VITALS: RESP 16
[2017-07-27] MEDS: PRAVASTATIN SODIUM 20 MG TAB PO SCH (20:47)
[2017-07-28] MEDS: HEPARIN SODIUM,PORCINE 5,000 UNIT/ML 1 ML VIAL SQ SCH ×2 (00:13→08:28)
[2017-07-28] MEDS: HYDROcodone/APAP 5-325MG 1 EACH TAB PO PRN ×2 (00:24→08:43)
--- NOTE | 2017-07-28 00:27 | P.PN ---
Subjective Progress Note Date: 07/27/17 Principal diagnosis: Right carotid endarterectomy Patient is a 82-year-old female came in for elective right internal carotid endarterectomy, for right-sided carotid stenosis. Patient denied any fever, chills, nausea, vomiting, abdominal pain, dysuria. Patient is complaining of dizziness and lightheadedness which has been much improved now. blood pressure suddenly dropped down systolic pressure of 105 mm Hg. Orthostatic vitals were obtained which are slightly positive. We will reduce dose of Imdur to 30 mg every morning instead of 120 mg every morning. Patient says that her dizziness is improving compared to yesterday. Otherwise no acute overnight issues. Patient is tolerating oral diet. All other review of systems negative except the above Current medications reviewed . Objective - Vital Signs Vital signs: Vital Signs Temp 97.3 F L 07/27/17 20:00 Pulse 68 07/27/17 20:00 Resp 16 07/27/17 20:00 BP 169/71 07/27/17 20:00 Pulse Ox 93 L 07/27/17 20:00 Intake & Output 07/27/17 07/27/17 07/28/17 06:59 18:59 06:59 Intake Total 360 Output Total 650 Balance -290 Weight 58.2 kg Intake: Oral 360 Output: Urine 650 Other: Voiding Method Toilet Toilet # Voids 1 3 # Bowel Movements 0 ABP, PAP, CO, CI - Last Documented Arterial Blood Pressure 141/37 - Exam GENERAL: The patient is alert and oriented x3, not in any acute distress. Well developed, well nourished. HEENT: Pupils are round and equally reacting to light. EOMI. No scleral icterus. No conjunctival pallor. Normocephalic, atraumatic. No pharyngeal erythema. No thyromegaly. Surgical dressing on the Right side of the neck. CARDIOVASCULAR: S1 and S2 present. No murmurs, rubs, or gallops. PULMONARY: Chest is clear to auscultation, no wheezing or crackles. ABDOMEN: Soft, nontender, nondistended, normoactive bowel sounds. No palpable organomegaly. MUSCULOSKELETAL: No joint swelling or deformity. EXTREMITIES: No cyanosis, clubbing, or pedal edema. NEUROLOGICAL: Gross neurological examination did not reveal any focal deficits. SKIN: No rashes. - Labs CBC & Chem 7: 07/27/17 07:48 07/27/17 07:48 Labs: Abnormal Lab Results - Last 24 Hours (Table) 07/27/17 07/27/17 Range/Units 07:48 07:48 RBC 3.52 L (3.80-5.40) m/uL Hgb 11.0 L (11.4-16.0) gm/dL Chloride 111 H (98-107) mmol/L BUN 6 L (7-17) mg/dL Assessment and Plan Plan: #1 postoperative day 2 right carotid endarterectomy: Pain management as per primary service. #2 dizziness or lightheadedness likely due to sudden hypotension. Will reduce dose of blood pressure medications #2 COPD without any acute exacerbation #3 history of DVT in the past #4 hyperlipidemia #5 hypertension #6 hypothyroidism #7 osteoarthritis #8 coronary artery disease #9 hypoalbuminemia with [id number] protein calorie malnutrition Plan: Patient will be continued on aspirin and Plavix. We will continue with metoprolol and lisinopril at lower dose and reduce Imdur dose to 30 mg every morning and follow the patient overnight. We will continue with the current management. Anticipate discharge next 24 hours with more clinical improvement. Further recommendations based on the clinical course. Time with Patient: Greater than 30
[2017-07-28] MEDS: LEVOTHYROXINE 25 MCG TAB PO SCH (06:41)
[2017-07-28] MEDS: ASPIRIN 81 MG PO SCH (08:28)
[2017-07-28] MEDS: CLOPIDOGREL 75 MG TAB PO SCH (08:29)
[2017-07-28] MEDS: ISOSORBIDE MONONITRATE ER 60 MG TAB.ER.24H PO SCH (08:29)
[2017-07-28] MEDS: METOPROLOL TARTRATE 25 MG TAB PO SCH (08:29)
--- NOTE | 2017-07-28 08:59 | P.PN ---
Subjective Progress Note Date: 07/28/17 Principal diagnosis: Right internal carotid artery stenosis, hypertension, hyperlipidemia, hypothyroidism, history of preoperative syncope, dizziness and lightheadedness, GERD, chronic obstructive pulmonary disease, history of coronary artery disease status post coronary artery bypass grafting 5 in 1999, history of non-STEMI myocardial infarction in 2015 and nicotine dependence. POD #3 right internal carotid endarterectomy with Dacron patch angioplasty. Patient is currently sitting up to the edge of her bed eating her breakfast. She denies any complaints of pain at this time. No acute distress. She denies any further complaints of dizziness. She is anxious to go home. Objective - Vital Signs Vital signs: Vital Signs Temp 97.6 F 07/28/17 08:00 Pulse 81 07/28/17 08:00 Resp 16 07/28/17 08:00 BP 197/82 07/28/17 08:00 Pulse Ox 93 L 07/28/17 08:00 Intake & Output 07/27/17 07/28/17 07/28/17 18:59 06:59 18:59 Intake Total 360 60 360 Output Total 650 Balance -290 60 360 Weight 58 kg Intake: Oral 360 60 360 Output: Urine 650 Other: Voiding Method Toilet # Voids 3 1 # Bowel Movements 0 ABP, PAP, CO, CI - Last Documented Arterial Blood Pressure 141/37 - Constitutional General appearance: Present: cooperative, no acute distress, thin - EENT Eyes: Present: PERRLA ENT: Present: hearing grossly normal - Neck Details: No JVD no lymphadenopathy. - Respiratory Details: Lung sounds are essentially clear throughout, diminished to her bilateral bases. Respirations are symmetrical and nonlabored. Oxygen saturation are 91 percent on room air. She is achieving 750-1000 mL on her incentive spirometry. - Cardiovascular Details: Regular rhythm and rate. S1 and S2 present, positive systolic murmur 2/6 heard best to her right sternal border. Remote telemetry showing normal sinus rhythm heart rate 89. Knee-high HARRIET hose and sequential compression devices in place to her bilateral lower extremities. - Gastrointestinal Gastrointestinal Comment(s): Abdomen is soft, nontender and nondistended. Active bowel sounds all 4 abdominal quadrants. Passing flatus. Tolerating oral intake. - Genitourinary Genitourinary Comment(s): Urine output adequate. Clear yellow urine. - Neurologic Neurologic Comment(s): No focal deficits. Neurologic: Present: CNII-XII intact - Musculoskeletal Musculoskeletal: Present: gait normal, strength equal bilaterally - Psychiatric Psychiatric: Present: A&O x's 3, appropriate affect, intact judgment & insight - Allied health notes Allied health notes reviewed: nursing - Labs CBC & Chem 7: 07/27/17 07:48 07/27/17 07:48 Assessment and Plan (1) Stenosis of right internal carotid artery Status: Acute (2) GERD (gastroesophageal reflux disease) Status: Acute (3) COPD (chronic obstructive pulmonary disease) Status: Acute (4) HTN (hypertension) Status: Acute (5) Hx of CABG Status: Acute (6) Hyperlipemia Status: Acute (7) Nicotine dependence Status: Acute (8) Dizziness, nonspecific Status: Acute Plan: 1. Continue aspirin, statin, Plavix, heparin subcu, and beta shobha. 2. Encourage incentive spirometer use every hour while awake. 3. Increase activity, ambulate in hallway. 4. GI/DVT prophylaxis. 5. Will monitor daily labs. 6. Discussed the importance of smoking cessation with the patient. 7. Medication management per primary care service. 8. More recommendations as patient progresses. Discharge planning in progress. Likely will discharged home within the next 24 hours. Time with Patient: Greater than 30
[2017-07-28 11:18] VITALS: BP 125/58; PULSE 61; TEMP 97.4
--- NOTE | 2017-07-28 15:46 | P.DS ---
Providers Date of admission: 07/25/17 10:55 Expected date of discharge: 07/28/17 Attending physician: Wolfgang Baugh Consults: 07/25/17 14:35 Consult Physician Routine Consulting Provider: Cooper Ly Consult Reason/Comments: medical managment Do you want consulting provider notified?: Yes 07/25/17 14:57 Consult Physician Routine Consulting Provider: Jude Song Consult Reason/Comments: vascular managment Do you want consulting provider notified?: Yes, Notify in am Primary care physician: Stated None - Discharge Diagnosis(es) (1) Stenosis of right internal carotid artery Current Visit: Yes Status: Acute (2) GERD (gastroesophageal reflux disease) Current Visit: Yes Status: Acute (3) COPD (chronic obstructive pulmonary disease) Current Visit: No Status: Acute (4) HTN (hypertension) Current Visit: No Status: Acute (5) Hx of CABG Current Visit: No Status: Acute (6) Hyperlipemia Current Visit: No Status: Acute (7) Nicotine dependence Current Visit: No Status: Acute (8) Dizziness, nonspecific Current Visit: Yes Status: Acute Hospital Course: FINAL DIAGNOSIS: 1. Severe right internal carotid artery stenosis 2. Hypertension 3. Hyperlipidemia 4. Hypothyroidism 5. History of preoperative syncope and dizziness 6. History of non-STEMI myocardial infarction in 2014 7. Chronic nicotine abuse 8. Chronic obstructive pulmonary disease 9. History of coronary artery disease status post coronary artery bypass grafting 5 in 1999 10. GERD PRINCIPAL PROCEDURE: 1. Right internal carotid artery endarterectomy with Dacron patch angioplasty. HISTORY OF PRESENT ILLNESS: This is an 82-year-old female patient who is followed by Dr. Yolanda Mar on an outpatient basis. Recently, the patient has had complaints of dizziness and lightheadedness at home. She had an episode of syncope about 3 weeks ago and hit her head on a coffee table in her home. She waited a couple of days after her syncopal episode to report her injury. Subsequently she was seen by Dr. Yolanda Mar who ordered a carotid duplex study and referred her to Dr. Armando [facility] for further workup and evaluation. Her carotid duplex study showed a greater than 70% stenosis to both her proximal internal carotid arteries. Subsequently for further evaluation the patient underwent a CTA of her neck which demonstrated a severe stenosis of 80% to her proximal right internal carotid artery and no significant hemodynamic stenosis involving her left internal carotid artery. Due to her stenosis of her right internal carotid artery she was subsequently referred to Dr. Song from vascular surgery. The results of the above- mentioned studies were reviewed with the patient by Dr. Song and an elective right carotid endarterectomy was recommended. HOSPITAL COURSE: The patient was admitted to the hospital and after obtaining consent was taken to the operating room where Dr. Wolfgang Baugh performed a right carotid endarterectomy with Dacron patch angioplasty. She was subsequent transferred to the intensive care unit where she was monitored hemodynamically and recovered. Her invasive lines were removed and her hemodynamic drips were discontinued and she was transferred to [address] [place] [address] for further monitoring and rehabilitation. During her recovery she did have some complaints of dizziness and lightheadedness with ambulation. Her medications were adjusted by internal medicine and the patient has denied any further complaints of dizziness. Discharge instructions have been reviewed with the patient and the patient will be discharged home today and followed by accredited home health care. COMPLICATIONS: There were no postoperative complications. CONSULTATIONS: 1. Dr. Quintanilla for medical management DISCHARGE INSTRUCTIONS: 1. No driving for 4 weeks, or until physician gives their ok. 2. The patient should sleep in their own bed, no medical bed needed. 3. Stairs are not an issue. If the bedroom is upstairs, it is advised that the patient go up at night and down in the morning for the first week. Go slowly, using handrail and take 1 step at a time. 4. No lifting, pushing, or pulling more than 10 pounds for 2 weeks. The physician will advise of any restriction changes. 7. Continue pain control per as needed orders. 8. Continue with incentive spirometry every hour while awake until otherwise directed by the physician. 9. Routine incision care, no ointments, lotions or powders on the incision. 10. Please notify surgeon/nurse practitioner for temperature greater than 101F or purulent drainage from incision. 11. Call Dr. Yolanda Mar's office for further complaints of dizziness. Plan - Discharge Summary New Discharge Prescriptions: New amLODIPine BESYLATE [Norvasc] 5 mg PO DAILY #30 tablet Continue Levothyroxine Sodium [Synthroid] 25 mcg PO DAILY Aspirin 81 mg PO DAILY Metoprolol Tartrate [Lopressor] 25 mg PO DAILY Clopidogrel [Plavix] 75 mg PO DAILY Nitroglycerin Sl Tabs [Nitrostat] 0.4 mg SUBLINGUAL Q5M PRN PRN Reason: Chest Pain Pravastatin Sodium [Pravachol] 20 mg PO HS Esomeprazole Magnesium [NexIUM] 40 mg PO HS PRN PRN Reason: Heartburn HYDROcodone/APAP 5-325MG [Walland 5-325] 1 tab PO Q6HR PRN #20 tab PRN Reason: Pain Changed Lisinopril [Zestril] 10 mg PO BID #60 Discharge Medication List Aspirin 81 mg PO DAILY 01/22/15 [History] Clopidogrel [Plavix] 75 mg PO DAILY 01/22/15 [History] Levothyroxine Sodium [Synthroid] 25 mcg PO DAILY 01/22/15 [History] Metoprolol Tartrate [Lopressor] 25 mg PO DAILY 01/22/15 [History] Nitroglycerin Sl Tabs [Nitrostat] 0.4 mg SUBLINGUAL Q5M PRN 01/22/15 [History] Pravastatin Sodium [Pravachol] 20 mg PO HS 08/21/15 [History] Esomeprazole Magnesium [NexIUM] 40 mg PO HS PRN 09/07/16 [History] HYDROcodone/APAP 5-325MG [Walland 5-325] 1 tab PO Q6HR PRN #20 tab 09/07/16 [Rx] Lisinopril [Zestril] 10 mg PO BID #60 07/28/17 [Rx] amLODIPine BESYLATE [Norvasc] 5 mg PO DAILY #30 tablet 07/28/17 [Rx] Follow up Appointment(s)/Referral(s): Yolanda Mar MD [REFERRING] - 08/02/17 11:00 am Jude Song DO [Doctor of Osteopathic Medicine] - 08/04/17 9:00 am Patient Instructions/Handouts: Carotid Endarterectomy (DC), Surgical Site Infections (DC), Hypertension (DC) Activity/Diet/Wound Care/Special Instructions: Accredited home care: #[phone] Discharge Disposition: HOME SELF-CARE
--- NOTE | 2017-07-29 01:32 | P.PN ---
Subjective Progress Note Date: 07/28/17 Principal diagnosis: Right carotid endarterectomy Patient is a 82-year-old female came in for elective right internal carotid endarterectomy, for right-sided carotid stenosis. Patient denied any fever, chills, nausea, vomiting, abdominal pain, dysuria. Patient is complaining of dizziness and lightheadedness which has been much improved now. blood pressure suddenly dropped down systolic pressure of 105 mm Hg. Orthostatic vitals were obtained which are slightly positive. We will reduce dose of Imdur to 30 mg every morning instead of 120 mg every morning. Patient says that her dizziness is improving compared to yesterday. Otherwise no acute overnight issues. Patient is tolerating oral diet. On 07/20/2017 Patient says that her dizziness is improved. Blood pressure was elevated this morning and we did increase lisinopril to 10 mg twice a day and discontinued them a Imdur. Continue with metoprolol and low-dose Norvasc was added. Patient is being discharged home today. Medically stable to be discharged to rehab at this time. All other review of systems negative except the above Current medications reviewed . Objective - Vital Signs Vital signs: Vital Signs Temp 97.4 F L 07/28/17 11:14 Pulse 61 07/28/17 11:14 Resp 16 07/28/17 11:14 BP 125/58 07/28/17 11:14 Pulse Ox 93 L 07/28/17 11:14 Intake & Output 07/27/17 07/28/17 07/28/17 18:59 06:59 18:59 Intake Total 360 60 610 Output Total 650 Balance -290 60 610 Weight 58 kg Intake: Intake, IV Titration 10 Amount Sodium Chloride 0.9% 500 10 ml As IV .STK-MED ONE with Heparin Sodium, Porcine 5,000 unit Rx#: [id number] Oral 360 60 600 Output: Urine 650 Other: Voiding Method Toilet # Voids 3 1 2 # Bowel Movements 0 ABP, PAP, CO, CI - Last Documented Arterial Blood Pressure 141/37 - Exam GENERAL: The patient is alert and oriented x3, not in any acute distress. Well developed, well nourished. HEENT: Pupils are round and equally reacting to light. EOMI. No scleral icterus. No conjunctival pallor. Normocephalic, atraumatic. No pharyngeal erythema. No thyromegaly. Surgical dressing on the Right side of the neck. CARDIOVASCULAR: S1 and S2 present. No murmurs, rubs, or gallops. PULMONARY: Chest is clear to auscultation, no wheezing or crackles. ABDOMEN: Soft, nontender, nondistended, normoactive bowel sounds. No palpable organomegaly. MUSCULOSKELETAL: No joint swelling or deformity. EXTREMITIES: No cyanosis, clubbing, or pedal edema. NEUROLOGICAL: Gross neurological examination did not reveal any focal deficits. SKIN: No rashes. - Labs CBC & Chem 7: 07/27/17 07:48 07/27/17 07:48 Assessment and Plan Plan: #1 postoperative day 2 right carotid endarterectomy: Pain management as per primary service. #2 dizziness or lightheadedness likely due to sudden hypotension. Increase the dose of lisinopril and DC'd Imdur #2 COPD without any acute exacerbation #3 history of DVT in the past #4 hyperlipidemia #5 hypertension #6 hypothyroidism #7 osteoarthritis #8 coronary artery disease #9 hypoalbuminemia with [id number] protein calorie malnutrition Plan: Patient will be continued on aspirin and Plavix. We will continue with metoprolol and lisinopril at lower dose and low-dose Norvasc was added. Patient did improve clinically and no complaints of dizziness noted today. Patient is stable to be discharged to rehab. Follow the primary care physician in one to 3 days.
== END 2017-07-28 16:26 | disposition home health service (06) | DRG 38 ==
LOC: 2ORMAIN 10:55 → 6ICU 14:05 → 6SEL 07-26 18:41
PROVIDERS: ADMIT Thoracic Surgery (Cardiothoracic Vascular Surgery); ATTEND Thoracic Surgery (Cardiothoracic Vascular Surgery)
PROC: 03UK0JZ Supplement Right Internal Carotid Artery with Synthetic Substitute, Open Approach (ICD-10-PCS; principal; 2017-07-25 13:00)
PROC: 03CK0ZZ Extirpation of Matter from Right Internal Carotid Artery, Open Approach (ICD-10-PCS; principal; 2017-07-25 13:00)
DX: I65.21 Occlusion and stenosis of right carotid artery (principal); E44.1 Mild protein-calorie malnutrition; J44.9 Chronic obstructive pulmonary disease, unspecified; Z95.1 Presence of aortocoronary bypass graft; I10 Essential (primary) hypertension; E03.9 Hypothyroidism, unspecified; E78.5 Hyperlipidemia, unspecified; F17.200 Nicotine dependence, unspecified, uncomplicated; I25.10 Atherosclerotic heart disease of native coronary artery without angina pectoris; I25.2 Old myocardial infarction; K21.9 Gastro-esophageal reflux disease without esophagitis; Z79.02 Long term (current) use of antithrombotics/antiplatelets; Z79.82 Long term (current) use of aspirin; Z79.899 Other long term (current) drug therapy; Z86.73 Personal history of transient ischemic attack (TIA), and cerebral infarction without residual deficits; Z88.1 Allergy status to other antibiotic agents; Z88.0 Allergy status to penicillin
CPT/HCPCS: 80048; 80053; 85025; 85027; 86850; 86900; 86901; 88304; 88305; 88311

== ENCOUNTER → 2019-07-13 | Outpatient (CLI) | payer MEDICARE ==
[2019-07-13 12:05] LABS: Anisocytosis Slight; Basophils # (A) 0.1 k/uL (0-0.2); Basophils % (A) 1 %; Eosinophils # (A) 0.1 k/uL (0-0.7); Eosinophils % (A) 1 %; HCT 35.5 % (34.0-46.0); Hypochromasia Marked; Lymphocytes # (A) 1.3 k/uL (1.0-4.8); Lymphocytes % (A) 20 %; MCH 27.5 pg (25.0-35.0); MCHC 31.1 g/dL (31.0-37.0); MCV 88.2 fL (80.0-100.0); Mean Platelet Volume 6.4; Monocytes # (A) 0.3 k/uL (0-1.0); Monocytes % (A) 4 %; Neutrophils # (A) 4.8 k/uL (1.3-7.7); Neutrophils % (A) 72 %; Platelet Count 352 k/uL (150-450); RBC 4.02 m/uL (3.80-5.40); RDW 16.1 % (11.5-15.5); WBC 6.7 k/uL (3.8-10.6)
--- NOTE | 2019-07-13 12:06 | US ---
EXAMINATION TYPE: US carotid duplex BILAT DATE OF EXAM: 07/13/2019 COMPARISON: NONE CLINICAL HISTORY: I65.29 Occlusion Stenosis. Bilateral CEA with mos recent right CEA 2 years ago; h istory of proximal left subclavian artery bypass to proximal CCA EXAM MEASUREMENTS: RIGHT: Peak Systolic Velocity (PSV) cm/sec ----- Right CCA: 44.2 ----- Right ICA: 73.9 ----- Right ECA: 119.0 ICA/CCA ratio: 1.7 RIGHT: End Diastole cm/sec ----- Right CCA: 9.3 ----- Right ICA: 18.9 ----- Right ECA: 18.8 LEFT: Peak Systolic Velocity (PSV) cm/sec ----- Left CCA: 52.8 ----- Left ICA: 132.9 ----- Left ECA: 83.9 ICA/CCA ratio: 2.5 LEFT: End Diastole cm/sec ----- Left CCA: 9.8 ----- Left ICA: 20.8 ----- Left ECA: 0.0 VERTEBRALS (direction of flow): Right Vertebral: Antegrade and appears dominant compared to left vertebral artery size Left Vertebral: Antegrade Rhythm: Arrhythmia noted on images #19, 24 Intimal wall thickening is noted in Right Carotid vessels. Hyperechoic, irregular wall changes are se en in extracranial left carotid vessels with abnormally elevated PSV in Left ICA. 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 This has mild elevation of velocity compatibl e with narrowing between 50 and 69% left ICA. Criteria for Assigning % of Stenosis / Diameter reduction (Estimation based on the indirect measurements of the internal carotid artery velocities (ICA PSV). 1. Normal (no stenosis)=ICA PSV < 125 cm/s: ratio < 2.0: ICA EDV<40 cm/s. 2. Less than 50% stenosis=ICA PSV < 125 cm/s: ratio < 2.0: ICA EDV<40 cm/s. 3. 50 to 69% stenosis=ICA PSV of 125 to 230 cm/s: ration 2.0 ? 4.0: ICA EDV 40-100 cm/s. 4. Greater than 70% stenosis to near occlusion= ICA PSV > 230 cm/s: ratio > 4.0: ICA EDV > 100 cm/s. 5. Near occlusion= ICA PSV velocities may be low or undetectable: variable ratio and ICA EDV. 6. Total occlusion=unable to detect flow.
[2019-07-13 16:39] LABS: Iron Saturation 5.71 (12.00-45.00)
[2019-07-13 17:33] LABS: Ferritin 7.2 ng/mL (10.0-291.0)
== END | disposition home or self-care (01) ==
LOC: RADUSWWP 09:58
PROVIDERS: ATTEND Family Medicine
DX: I65.23 Occlusion and stenosis of bilateral carotid arteries (principal); D64.9 Anemia, unspecified
CPT/HCPCS: 82607; 82728; 83540; 83550; 85025; 93880

== ENCOUNTER → 2020-06-10 | Outpatient (CLI) | payer MEDICARE ==
--- NOTE | 2020-06-10 11:43 | US ---
EXAMINATION TYPE: US carotid duplex BILAT DATE OF EXAM: 06/10/2020 COMPARISON: US CLINICAL HISTORY: I65.2 STENOSIS. H/O stenosis EXAM MEASUREMENTS: RIGHT: Peak Systolic Velocity (PSV) cm/sec ----- Right CCA: 62.5 ----- Right ICA: 100.4 ----- Right ECA: 263.7 ICA/CCA ratio: 1.6 RIGHT: End Diastole cm/sec ----- Right CCA: 10.1 ----- Right ICA: 18.9 ----- Right ECA: 0.0 LEFT: Peak Systolic Velocity (PSV) cm/sec ----- Left CCA: 85.3 ----- Left ICA: 148.0 ----- Left ECA: 141.5 ICA/CCA ratio: 1.7 LEFT: End Diastole cm/sec ----- Left CCA: 11.7 ----- Left ICA: 18.7 ----- Left ECA: 0.0 VERTEBRALS (direction of flow): Right Vertebral: Antegrade Left Vertebral: Antegrade Rhythm: Arrhythmia Elevated/Increased velocity right ECA when compared to previous/ Slightly elevated velocities left ICA and ECA IMPRESSION: Elevated velocities without evidence for hemodynamically significant stenosis at this ti me. Criteria for Assigning % of Stenosis / Diameter reduction (Estimation based on the indirect measurements of the internal carotid artery velocities (ICA PSV). 1. Normal (no stenosis)=ICA PSV < 125 cm/s: ratio < 2.0: ICA EDV<40 cm/s. 2. Less than 50% stenosis=ICA PSV < 125 cm/s: ratio < 2.0: ICA EDV<40 cm/s. 3. 50 to 69% stenosis=ICA PSV of 125 to 230 cm/s: ration 2.0 ? 4.0: ICA EDV 40-100 cm/s. 4. Greater than 70% stenosis to near occlusion= ICA PSV > 230 cm/s: ratio > 4.0: ICA EDV > 100 cm/s. 5. Near occlusion= ICA PSV velocities may be low or undetectable: variable ratio and ICA EDV. 6. Total occlusion=unable to detect flow.
--- NOTE | 2020-06-10 12:00 | CT ---
EXAMINATION TYPE: CT thoracic spine wo con DATE OF EXAM: 06/10/2020 COMPARISON: Thoracic spine x-ray February 2018. HISTORY: Thoracic pain after significant fall injury a few months ago per patient. CT DLP: 736 mGycm Automated exposure control for dose reduction was used. FINDINGS: Coronal images show persistent dextroconvex scoliosis centered mid to lower thoracic spine. No acute fracture or dislocation is seen. Sagittal images show vertebral body heights and disc space heights a re fairly well-maintained. Mild multilevel anterior spurring is present. Spinal canal preserved. Visualized lungs show emphysematous change with moderate biapical pleural/parenchymal scarring partia lly imaged. [place] coronary artery calcification is present. There is metallic stent in the left comm on carotid artery at origin from the aortic arch. There is additional graft in the left supraclavicul ar region noted. Overlying sternal wires are present. IMPRESSION: As above. No acute post traumatic finding identified.
== END | disposition home or self-care (01) ==
LOC: RADUSWWP 10:27
PROVIDERS: ATTEND Family Medicine
DX: I65.23 Occlusion and stenosis of bilateral carotid arteries (principal); M41.84 Other forms of scoliosis, thoracic region; Z95.828 Presence of other vascular implants and grafts
CPT/HCPCS: 72128; 93880

== ENCOUNTER 2021-03-11 12:59 | Emergency (ER) | payer MEDICARE ==
[2021-03-11 13:05] VITALS: TEMP 98.7
--- NOTE | 2021-03-11 14:43 | XR ---
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 Mild degenerative spurring at the first CMC joint. No acute fracture, subluxation, or dislocat ion seen. HAND: Osteopenia. No acute fracture, subluxation or dislocation. IMPRESSION: Wrist and hand with osteopenia. No acute osseous abnormality seen. Some bony changes which may be see n with ulnar impaction syndrome.
--- NOTE | 2021-03-11 16:14 | ED ---
General Adult HPI - General Chief complaint: Extremity Injury, Upper Stated complaint: L arm injury Time Seen by Provider: 03/11/21 13:07 Source: patient, RN notes reviewed Mode of arrival: ambulatory Limitations: no limitations - History of Present Illness Initial comments: 85-year-old female presents to the emergency room for a chief complaint of left wrist pain. Patient states she swatted at a bee yesterday and hit her left arm on the glass table. States it was near her wrist. Patient states it now hurts to press on the area or use the left wrist or hand.Patient has no other complaints at this time including shortness of breath, chest pain, abdominal pain, nausea or vomiting, headache, or visual changes. - Related Data Home Medications Medication Instructions Recorded Confirmed Aspirin 81 mg PO DAILY 01/22/15 03/11/21 Clopidogrel [Plavix] 75 mg PO DAILY 01/22/15 03/11/21 Levothyroxine Sodium [Synthroid] 25 mcg PO DAILY 01/22/15 03/11/21 Metoprolol Tartrate [Lopressor] 25 mg PO DAILY 01/22/15 03/11/21 Nitroglycerin Sl Tabs [Nitrostat] 0.4 mg SL Q5M PRN 01/22/15 03/11/21 Pravastatin Sodium [Pravachol] 20 mg PO HS 08/21/15 03/11/21 HYDROcodone/APAP 10-325MG [[place] 1 tab PO TID 03/11/21 03/11/21 10-325] Omeprazole Magnesium [PriLOSEC OTC] 20 mg PO DAILY PRN 03/11/21 03/11/21 lisinopriL [Zestril] 5 mg PO HS 03/11/21 03/11/21 Allergies Allergy/AdvReac Type Severity Reaction Status Date / Time erythromycin base Allergy Unknown Verified 03/11/21 15:57 [From E-Mycin] Penicillins Allergy Unknown Verified 03/11/21 15:57 Childhood atorvastatin calcium AdvReac unable to Verified 03/11/21 15:57 [From Lipitor] walk cortisone AdvReac HEART Verified 03/11/21 15:57 ATTACK Review of Systems ROS Statement: Those systems with pertinent positive or pertinent negative responses have been documented in the HPI. ROS Other: All systems not noted in ROS Statement are negative. Past Medical History Past Medical History: Coronary Artery Disease (CAD), COPD, CVA/TIA, Deep Vein Thrombosis (DVT), Hyperlipidemia, Hypertension, Myocardial Infarction ([place]), Osteoarthritis (OA), Thyroid Disorder Additional Past Medical History / Comment(s): DVT leg in 1972, disc problems, ear problems & drainage @times, states has "left sided heart blockage and 2 holes in heart" Last Myocardial Infarction Date:: 05/11/15 History of Any Multi-Drug Resistant Organisms: None Reported Past Surgical History: Appendectomy, Coronary Bypass/CABG, Heart Catheterization, Heart Catheterization With Stent, Hysterectomy Additional Past Surgical History / Comment(s): left carotid endarterectomy, 5 vessel CABG 1999, nasal surg, polyps removed vocal cords, mult stents in heart Past Anesthesia/Blood Transfusion Reactions: Previous Problems w/ Anesthesia Additional Past Anesthesia/Blood Transfusion Reaction / Comment(s): some kind of medication injection given during nasal surg. that caused vision problems for 3 mos.-doesn't know what it was Date of Last Stent Placement:: 05/11/15 Past Psychological History: No Psychological Hx Reported Smoking Status: Current every day smoker Past Alcohol Use History: None Reported Past Drug Use History: None Reported - Past Family History Mother History Unknown: Yes Additional Family Medical History / Comment(s): pt adopted, biological hx unknown. Has sister also, but never able to contact. General Exam Limitations: no limitations General appearance: alert, in no apparent distress Head exam: Present: atraumatic, normocephalic, normal inspection Eye exam: Present: normal appearance ENT exam: Present: normal exam, mucous membranes moist Neck exam: Present: normal inspection. Absent: tenderness, meningismus, lymphadenopathy Respiratory exam: Present: normal lung sounds bilaterally. Absent: respiratory distress, wheezes, rales, rhonchi, stridor Cardiovascular Exam: Present: regular rate, normal rhythm, normal heart sounds. Absent: systolic murmur, diastolic murmur, rubs, gallop, clicks Extremities exam: Present: tenderness (Tenderness to the dorsal left wrist worse in the ulnar aspect. No scaphoid tenderness.), normal capillary refill (Capillary refill less than 2 seconds, radial pulse 2+ left arm), other (Sensation intact left upper extremity.). Absent: full ROM (Patient has pain and limited range of motion with flexion and extension of the left wrist but mechanisms are intact.), joint swelling (No edema or erythema of the left arm.) Course Vital Signs 03/11/21 13:03 Temperature 98.7 F Pulse Rate 84 Respiratory 16 Rate Blood Pressure 158/54 O2 Sat by Pulse 93 L Oximetry Procedures - Orthopedic Splinting/Casting Injury #1 Side: left Upper Extremity Injury Location: short arm Upper Extremity Immobilizer: posterior splint Medical Decision Making - Medical Decision Making Wrist x-ray shows wrist and hand with osteopenia however no acute osseous abnormality. 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 Patient was splinted in a dorsal wrist splint. She was referred to orthopedics. She will return here for any worsening symptoms. Disposition Clinical Impression: Wrist pain, left Disposition: HOME SELF-CARE Condition: Good Instructions (If sedation given, give patient instructions): Wrist Injury (ED) Additional Instructions: Please take Motrin and Tylenol for pain. Follow-up with orthopedics. Return to the emergency room for any worsening symptoms. Is patient prescribed a controlled substance at d/c from ED?: No Referrals: Marco Trinh MD [Primary Care Provider] - 1-2 days Jimbo Pride MD [STAFF PHYSICIAN] - 1-2 days Time of Disposition: 16:14
[2021-03-11 16:24] VITALS: BP 148/79; PULSE 77; RESP 20
== END 2021-03-11 16:24 | disposition home or self-care (01) ==
LOC: EC 12:59
DX: M25.532 Pain in left wrist (principal); I10 Essential (primary) hypertension; I25.10 Atherosclerotic heart disease of native coronary artery without angina pectoris; I25.2 Old myocardial infarction; J44.9 Chronic obstructive pulmonary disease, unspecified; M19.90 Unspecified osteoarthritis, unspecified site; F17.200 Nicotine dependence, unspecified, uncomplicated; E78.5 Hyperlipidemia, unspecified; W22.03XA Walked into furniture, initial encounter; E07.9 Disorder of thyroid, unspecified; Z79.82 Long term (current) use of aspirin; Z86.73 Personal history of transient ischemic attack (TIA), and cerebral infarction without residual deficits; Z86.718 Personal history of other venous thrombosis and embolism; Z90.89 Acquired absence of other organs; Z95.1 Presence of aortocoronary bypass graft; Z95.5 Presence of coronary angioplasty implant and graft
CPT/HCPCS: 29125; 99283

== ENCOUNTER 2021-08-27 18:06 | Emergency (ER) | payer MEDICARE ==
[2021-08-27 19:11] VITALS: RESP 20; TEMP 97.7
[2021-08-27] MEDS ORDERED: SODIUM CHLORIDE 0.9% 1,000 ML IV STA (21:48)
[2021-08-27] MEDS ORDERED: MECLIZINE 12.5 MG TAB PO STA (21:49)
--- NOTE | 2021-08-27 21:51 | ED ---
General Adult HPI - General Chief complaint: Headache Stated complaint: Ear pain, weakness, fall Time Seen by Provider: 08/27/21 21:22 Source: patient Mode of arrival: wheelchair Limitations: no limitations - History of Present Illness Initial comments: 86-year-old female with a past medical history of CAD, COPD, CVA, DVT, hyperlipidemia, hypertension, [place] presents to the emergency room for dizziness. Patient states this morning she was having dizziness. States the world was spinning around her. States she fell because of this. Patient states she has pressure in her right ear and a 5 out of 10 pain in the back of her head. Patient has had dizziness before but this is worse than normal. Patient has no other complaints at this time including shortness of breath, chest pain, abdominal pain, nausea or vomiting, headache, or visual changes. - Related Data Home Medications Medication Instructions Recorded Confirmed Aspirin 81 mg PO DAILY 01/22/15 08/27/21 Clopidogrel [Plavix] 75 mg PO DAILY 01/22/15 08/27/21 Levothyroxine Sodium [Synthroid] 25 mcg PO DAILY 01/22/15 08/27/21 Nitroglycerin Sl Tabs [Nitrostat] 0.4 mg SL Q5M PRN 01/22/15 08/27/21 Pravastatin Sodium [Pravachol] 20 mg PO HS 08/21/15 08/27/21 HYDROcodone/APAP 10-325MG [[place] 1 tab PO TID 03/11/21 08/27/21 10-325] Omeprazole Magnesium [PriLOSEC OTC] 20 mg PO DAILY PRN 03/11/21 08/27/21 lisinopriL [Zestril] 5 mg PO HS 03/11/21 08/27/21 Metoprolol Succinate [Toprol XL] 50 mg PO DAILY 08/27/21 08/27/21 Montelukast [Singulair] 10 mg PO HS 08/27/21 08/27/21 Nitrofurantoin Monohyd/M-Cryst 100 mg PO BID 08/27/21 08/27/21 [Macrobid] Vit C/E/Zn/Coppr/Lutein/Zeaxan 1 cap PO BID 08/27/21 08/27/21 [Preservision Areds 2 Softgel] Previous Rx's Medication Instructions Recorded Meclizine [Antivert] 25 mg PO TID PRN #15 tab 08/28/21 Allergies Allergy/AdvReac Type Severity Reaction Status Date / Time erythromycin base Allergy Unknown Verified 08/27/21 23:09 [From E-Mycin] Penicillins Allergy Unknown Verified 08/27/21 23:09 Childhood atorvastatin calcium AdvReac unable to Verified 08/27/21 23:09 [From Lipitor] walk cortisone AdvReac HEART Verified 08/27/21 23:09 ATTACK Review of Systems ROS Statement: Those systems with pertinent positive or pertinent negative responses have been documented in the HPI. ROS Other: All systems not noted in ROS Statement are negative. Past Medical History Past Medical History: Coronary Artery Disease (CAD), COPD, CVA/TIA, Deep Vein Thrombosis (DVT), Hyperlipidemia, Hypertension, Myocardial Infarction ([place]), Osteoarthritis ([place]), Thyroid Disorder Additional Past Medical History / Comment(s): DVT leg in 1972, disc problems, ear problems & drainage @times, states has "left sided heart blockage and 2 holes in heart" Last Myocardial Infarction Date:: 05/11/15 History of Any Multi-Drug Resistant Organisms: None Reported Past Surgical History: Appendectomy, Coronary Bypass/CABG, Heart Catheterization, Heart Catheterization With Stent, Hysterectomy Additional Past Surgical History / Comment(s): left carotid endarterectomy, 5 vessel CABG 1999, nasal surg, polyps removed vocal cords, mult stents in heart Past Anesthesia/Blood Transfusion Reactions: Previous Problems w/ Anesthesia Additional Past Anesthesia/Blood Transfusion Reaction / Comment(s): some kind of medication injection given during nasal surg. that caused vision problems for 3 mos.-doesn't know what it was Date of Last Stent Placement:: 05/11/15 Past Psychological History: No Psychological Hx Reported Smoking Status: Current every day smoker Past Alcohol Use History: None Reported Past Drug Use History: None Reported - Past Family History Mother History Unknown: Yes Additional Family Medical History / Comment(s): pt adopted, biological hx unknown. Has sister also, but never able to contact. General Exam Limitations: no limitations General appearance: alert, in no apparent distress Head exam: Present: atraumatic Eye exam: Present: normal appearance, PERRL, EOMI. Absent: scleral icterus, conjunctival injection ENT exam: Present: normal exam, mucous membranes moist Neck exam: Present: normal inspection, full ROM. Absent: tenderness Respiratory exam: Present: normal lung sounds bilaterally. Absent: respiratory distress, wheezes Cardiovascular Exam: Present: regular rate, normal rhythm, normal heart sounds GI/Abdominal exam: Present: soft, normal bowel sounds. Absent: distended, tenderness Neurological exam: Present: alert, oriented X3, normal gait Expanded Patient oriented to: Present: person, place, time Speech: Present: fluid speech Cranial nerves: EOM's Intact: Normal, Tongue Deviation: Normal Cerebellar function: Finger to Nose: Normal Upper motor neuron: Pronator Drift: Normal Sensory exam: Lower Extremity Light Touch: Normal, Lower Extremity Pin Prick: Normal Motor strength exam: RUE: 5, LUE: 5, RLE: 5, LLE: 5 Psychiatric exam: Present: normal affect, normal mood Course Vital Signs 08/27/21 19:07 Temperature 97.7 F Pulse Rate 75 Respiratory 20 Rate Blood Pressure 161/62 O2 Sat by Pulse 97 Oximetry EKG Findings - EKG Comments: EKG Findings:: Sinus rhythm, ventricular rate 71, [place] interval 180, QTC 430 Medical Decision Making - Medical Decision Making Vitals are stable. HPI and physical exam as documented. Patient has a normal gait, no ataxia. CBC CMP unremarkable. Troponin negative. EKG nonischemic. CT angiogram head and neck showed no evidence of any significant intracranial angiographic abnormality. There is plaque formation with approximate 60% stenosis of the origin of the left ICA. Patient related, sitting up in bed. Feeling much better. She was given meclizine. At this time patient is stable for discharge home. Will return here for any worsening symptoms. - Lab Data Result diagrams: 08/27/21 22:25 08/27/21 23:18 Lab Results 08/27/21 08/27/21 08/27/21 Range/Units 22:25 22:25 22:25 WBC 7.4 (3.8-10.6) k/uL RBC 4.28 (3.80-5.40) m/uL Hgb 13.3 (11.4-16.0) gm/dL Hct 41.2 (34.0-46.0) % MCV 96.2 (80.0-100.0) fL MCH 31.1 (25.0-35.0) pg MCHC 32.3 (31.0-37.0) g/dL RDW 13.2 (11.5-15.5) % Plt Count 272 (150-450) k/uL MPV 7.6 Neutrophils % 61 % Lymphocytes % 28 % Monocytes % 5 % Eosinophils % 3 % Basophils % 1 % Neutrophils # 4.5 (1.3-7.7) k/uL Lymphocytes # 2.0 (1.0-4.8) k/uL Monocytes # 0.4 (0-1.0) k/uL Eosinophils # 0.2 (0-0.7) k/uL Basophils # 0.1 (0-0.2) k/uL PT 9.8 (9.0-12.0) sec INR 0.9 (<1.2) APTT 21.2 L (22.0-30.0) sec Sodium (137-145) mmol/L Potassium (3.5-5.1) mmol/L Chloride (98-107) mmol/L Carbon Dioxide (22-30) mmol/L Anion Gap mmol/L BUN (7-17) mg/dL Creatinine (0.52-1.04) mg/dL Est GFR (CKD-EPI)AfAm (>60 ml/min/1.73 sqM) Est GFR (CKD-EPI)NonAf (>60 ml/min/1.73 sqM) Glucose (74-99) mg/dL Calcium (8.4-10.2) mg/dL Total Bilirubin (0.2-1.3) mg/dL AST (14-36) U/L ALT (4-34) U/L Alkaline Phosphatase (38-126) U/L Troponin I <0.012 (0.000-0.034) ng/mL Total Protein (6.3-8.2) g/dL Albumin (3.5-5.0) g/dL 08/27/21 Range/Units 23:18 WBC (3.8-10.6) k/uL RBC (3.80-5.40) m/uL Hgb (11.4-16.0) gm/dL Hct (34.0-46.0) % MCV (80.0-100.0) fL MCH (25.0-35.0) pg MCHC (31.0-37.0) g/dL RDW (11.5-15.5) % Plt Count (150-450) k/uL MPV Neutrophils % % Lymphocytes % % Monocytes % % Eosinophils % % Basophils % % Neutrophils # (1.3-7.7) k/uL Lymphocytes # (1.0-4.8) k/uL Monocytes # (0-1.0) k/uL Eosinophils # (0-0.7) k/uL Basophils # (0-0.2) k/uL PT (9.0-12.0) sec INR (<1.2) APTT (22.0-30.0) sec Sodium 137 (137-145) mmol/L Potassium 4.4 (3.5-5.1) mmol/L Chloride 108 H (98-107) mmol/L Carbon Dioxide 25 (22-30) mmol/L Anion Gap 4 mmol/L BUN 13 (7-17) mg/dL Creatinine 0.50 L (0.52-1.04) mg/dL Est GFR (CKD-EPI)AfAm >90 (>60 ml/min/1.73 sqM) Est GFR (CKD-EPI)NonAf 89 (>60 ml/min/1.73 sqM) Glucose 87 (74-99) mg/dL Calcium 8.7 (8.4-10.2) mg/dL Total Bilirubin 0.4 (0.2-1.3) mg/dL AST 26 (14-36) U/L ALT 14 (4-34) U/L Alkaline Phosphatase 68 (38-126) U/L Troponin I (0.000-0.034) ng/mL Total Protein 6.5 (6.3-8.2) g/dL Albumin 3.5 (3.5-5.0) g/dL Disposition Clinical Impression: Dizziness Disposition: HOME SELF-CARE Condition: Good Instructions (If sedation given, give patient instructions): Dizziness (ED) Additional Instructions: Please follow up with your doctor in 1-2 days. Take dizziness meds as directed. Return to the ER for any worsening symptoms. Prescriptions: Meclizine [Antivert] 25 mg PO TID PRN #15 tab PRN Reason: dizzy Is patient prescribed a controlled substance at d/c from ED?: No Referrals: Marco Trinh MD [Primary Care Provider] - 1-2 days Time of Disposition: 01:17
[2021-08-27 22:36] LABS: Basophils # (A) 0.1 k/uL (0-0.2); Basophils % (A) 1 %; Eosinophils # (A) 0.2 k/uL (0-0.7); Eosinophils % (A) 3 %; HCT 41.2 % (34.0-46.0); HGB 13.3 gm/dL (11.4-16.0); Lymphocytes % (A) 28 %; MCH 31.1 pg (25.0-35.0); MCHC 32.3 g/dL (31.0-37.0); MCV 96.2 fL (80.0-100.0); Mean Platelet Volume 7.6; Monocytes # (A) 0.4 k/uL (0-1.0); Monocytes % (A) 5 %; Neutrophils # (A) 4.5 k/uL (1.3-7.7); Neutrophils % (A) 61 %; Platelet Count 272 k/uL (150-450); RBC 4.28 m/uL (3.80-5.40); RDW 13.2 % (11.5-15.5); WBC 7.4 k/uL (3.8-10.6)
[2021-08-27 23:02] LABS: INR 0.9 (<1.2); Prothrombin Time 9.8 sec (9.0-12.0)
[2021-08-27 23:31] LABS: Partial Thromboplastin Time 21.2 sec (22.0-30.0)
[2021-08-27 23:41] LABS: ALT 14 U/L (4-34); African American GFR (CKD) >90 (>60 ml/min/1.73 sqM); Albumin 3.5 g/dL (3.5-5.0); Anion Gap 4 mmol/L; Blood Urea Nitrogen 13 mg/dL (7-17); Calcium 8.7 mg/dL (8.4-10.2); Carbon Dioxide 25 mmol/L (22-30); Chloride 108 mmol/L (98-107); Glucose 87 mg/dL (74-99); Non-African American GFR(CKD) 89 (>60 ml/min/1.73 sqM); Sodium 137 mmol/L (137-145); Total Bilirubin 0.4 mg/dL (0.2-1.3); Total Protein 6.5 g/dL (6.3-8.2)
[2021-08-27 23:52] LABS: AST 26 U/L (14-36); Alkaline Phosphatase 68 U/L (38-126); Potassium 4.4 mmol/L (3.5-5.1)
--- NOTE | 2021-08-28 01:02 | CT ---
EXAMINATION TYPE: CT angio head neck DATE OF EXAM: 08/28/2021 COMPARISON: 04/29/2017 CT neck HISTORY: right ear drainage and head pressure CT DLP: 284.6 mGycm Automated exposure control for dose reduction was used. CONTRAST: Performed with IV Contrast, patient injected with 80 mL of Isovue 370. Images obtained from above the aortic arch to the vertex of the brain with IV contrast. There are 3-D post processed images. There is arterial flow in the common internal and external carotid arteries bilaterally. This possibl e stent in the proximal left common carotid artery. There is arterial flow in both subclavian arterie s. there is emphysema at the lung apices with pleural and pulmonary fibrotic changes. There is some plaque formation at the left carotid artery bifurcation and estimated 60% stenosis at t he origin of the left internal carotid artery. There is mild plaque at the right carotid artery bifur cation and estimated less than 15% stenosis of the right internal carotid artery. There is arterial f low in both vertebral arteries. Right vertebral artery is larger than the left. There is arterial sarah w in the vertebrobasilar artery system. There is no evidence of carotid or vertebral artery aneurysm or dissection. There is arterial flow in the anterior middle and posterior cerebral arteries bilaterally. There is n o mass effect. There is no evidence of intracranial arterial hemodynamic stenosis. There is normal en hancement of the venous sinuses. There is no evidence of intracranial aneurysm or neovascularity. IMPRESSION: No evidence of any significant intracranial angiographic abnormality. There is plaque formation and approximate 60% stenosis of the origin of the left internal carotid art [place].
[2021-08-28 02:06] VITALS: BP 142/64; PULSE 74
== END 2021-08-28 01:42 | disposition home or self-care (01) ==
LOC: EC 18:06
DX: R42 Dizziness and giddiness (principal); I25.10 Atherosclerotic heart disease of native coronary artery without angina pectoris; J44.9 Chronic obstructive pulmonary disease, unspecified; E78.5 Hyperlipidemia, unspecified; I10 Essential (primary) hypertension; I25.2 Old myocardial infarction; M19.90 Unspecified osteoarthritis, unspecified site; E07.9 Disorder of thyroid, unspecified; F17.200 Nicotine dependence, unspecified, uncomplicated; Z79.82 Long term (current) use of aspirin; Z79.02 Long term (current) use of antithrombotics/antiplatelets; Z88.0 Allergy status to penicillin; Z88.1 Allergy status to other antibiotic agents; Z86.73 Personal history of transient ischemic attack (TIA), and cerebral infarction without residual deficits; Z86.718 Personal history of other venous thrombosis and embolism; Z90.49 Acquired absence of other specified parts of digestive tract; Z95.1 Presence of aortocoronary bypass graft; Z90.710 Acquired absence of both cervix and uterus
CPT/HCPCS: 99284; 36415; 93005; 80053; 84484; 85025; 85610; 85730; 70496; 70498; Q9967

== ENCOUNTER 2021-09-03 10:09 | Inpatient (IN) | payer MEDICARE ==
[2021-09-03] MEDS ORDERED: HYDROmorphone 0.5 MG/0.5 ML SYRINGE IVP STA (10:33)
[2021-09-03] MEDS ORDERED: ONDANSETRON 4 MG/2 ML VIAL IVP STA (10:34)
--- NOTE | 2021-09-03 10:52 | ED ---
Fall HPI - General Source: patient, EMS, RN notes reviewed Mode of arrival: EMS Limitations: no limitations <Jacinto Pal - Last Filed: 09/03/21 13:10> <Carol Ma - Last Filed: 09/10/21 02:11> - General Chief Complaint: Fall Stated Complaint: Fall-R hip pain Time Seen by Provider: 09/03/21 10:24 - History of Present Illness Initial Comments: This a 86-year-old female presents emergency dept via EMS chief complaint of a fall. Patient states that she got up quickly started feel dizzy loss of balance and fell. Patient did not hit her head no loss conscious. Patient states she has right hip, right leg pain. Patient is on Plavix patient's had no prior hip fracture. (Jacinto Pal) - Related Data Home Medications Medication Instructions Recorded Confirmed Aspirin 81 mg PO DAILY 01/22/15 09/03/21 Levothyroxine Sodium [Synthroid] 25 mcg PO DAILY 01/22/15 09/03/21 Nitroglycerin Sl Tabs [Nitrostat] 0.4 mg SL Q5M PRN 01/22/15 09/03/21 Pravastatin Sodium [Pravachol] 20 mg PO HS 08/21/15 09/03/21 Omeprazole Magnesium [PriLOSEC OTC] 20 mg PO DAILY PRN 03/11/21 09/03/21 lisinopriL [Zestril] 5 mg PO HS 03/11/21 09/03/21 Metoprolol Succinate [Toprol XL] 50 mg PO DAILY 08/27/21 09/03/21 Vit C/E/Zn/Coppr/Lutein/Zeaxan 1 cap PO BID 08/27/21 09/03/21 [Preservision Areds 2 Softgel] Previous Rx's Medication Instructions Recorded Meclizine [Antivert] 25 mg PO TID PRN #15 tab 08/28/21 HYDROcodone/APAP 10-325MG [[place] 1 tab PO Q4HR PRN 3 Days #18 tab 09/08/21 10-325] Heparin Sodium,Porcine [Heparin 5,000 unit SQ Q12HR #30 each 09/08/21 Sodium] Nicotine 14Mg/24Hr Patch [Habitrol] 1 patch TRANSDERM DAILY patch 09/08/21 Sennosides/Docusate Sodium [[place] 1 each PO DAILY PRN #15 capsule 09/08/21 Plus 8.6-50 mg Softgel] Allergies Allergy/AdvReac Type Severity Reaction Status Date / Time erythromycin base Allergy Unknown Verified 09/03/21 11:42 [From E-Mycin] Penicillins Allergy Unknown Verified 09/03/21 11:42 Childhood atorvastatin calcium AdvReac unable to Verified 09/03/21 11:42 [From Lipitor] walk cortisone AdvReac HEART Verified 09/03/21 11:42 ATTACK Review of Systems ROS Other: All systems not noted in ROS Statement are negative. <Jacinto Pal - Last Filed: 09/03/21 13:10> ROS Other: All systems not noted in ROS Statement are negative. <Carol Ma - Last Filed: 09/10/21 02:11> ROS Statement: Those systems with pertinent positive or pertinent negative responses have been documented in the HPI. Past Medical History Past Medical History: Coronary Artery Disease (CAD), COPD, CVA/TIA, Deep Vein Thrombosis (DVT), Hyperlipidemia, Hypertension, Myocardial Infarction ([place]), Osteoarthritis (OA), Thyroid Disorder Additional Past Medical History / Comment(s): DVT leg in 1972, disc problems, ear problems & drainage @times, states has "left sided heart blockage and 2 holes in heart" Last Myocardial Infarction Date:: 05/11/15 History of Any Multi-Drug Resistant Organisms: None Reported Past Surgical History: Appendectomy, Coronary Bypass/CABG, Heart Catheterization, Heart Catheterization With Stent, Hysterectomy Additional Past Surgical History / Comment(s): left carotid endarterectomy, 5 vessel CABG 1999, nasal surg, polyps removed vocal cords, mult stents in heart Past Anesthesia/Blood Transfusion Reactions: Previous Problems w/ Anesthesia Additional Past Anesthesia/Blood Transfusion Reaction / Comment(s): some kind of medication injection given during nasal surg. that caused vision problems for 3 mos.-doesn't know what it was Date of Last Stent Placement:: 05/11/15 Past Psychological History: No Psychological Hx Reported Smoking Status: Current every day smoker Past Alcohol Use History: None Reported Past Drug Use History: None Reported - Past Family History Mother History Unknown: Yes Additional Family Medical History / Comment(s): pt adopted, biological hx unknown. Has sister also, but never able to contact. <Jacinto Pal - Last Filed: 09/03/21 13:10> General Exam Limitations: no limitations General appearance: alert, in no apparent distress Head exam: Present: atraumatic, normocephalic, normal inspection Eye exam: Present: normal appearance, PERRL, EOMI. Absent: scleral icterus, conjunctival injection, periorbital swelling Respiratory exam: Present: normal lung sounds bilaterally. Absent: respiratory distress, wheezes, rales, rhonchi, stridor Cardiovascular Exam: Present: regular rate, normal rhythm, normal heart sounds. Absent: systolic murmur, diastolic murmur, rubs, gallop, clicks Extremities exam: Present: other (Right hip there is diffuse tenderness with palpation, leg is neurovascular intact patient is in a flexed position she is unable to fully straighten her leg there is pain with any sort of movement.) Neurological exam: Present: alert, oriented X3, CN II-XII intact Skin exam: Present: warm, dry, intact, normal color. Absent: rash <Jacinto Pal - Last Filed: 09/03/21 13:10> Course Vital Signs 09/03/21 09/03/21 09/03/21 10:12 15:21 18:30 Temperature 97.6 F Pulse Rate 76 82 Pulse Rate [ 78 Pulse Oximetery ] Respiratory 20 18 16 Rate Blood Pressure 132/50 130/45 Blood Pressure 144/53 [Left Arm] O2 Sat by Pulse 96 95 94 L Oximetry 09/03/21 09/03/21 18:48 22:54 Temperature Pulse Rate 83 Pulse Rate [ Pulse Oximetery ] Respiratory 18 Rate Blood Pressure 144/53 Blood Pressure 106/43 [Left Arm] O2 Sat by Pulse 96 Oximetry Medical Decision Making <Jacinto Pal - Last Filed: 09/03/21 13:10> - Lab Data Result diagrams: 09/07/21 06:36 09/07/21 06:36 <Carol Ma - Last Filed: 09/10/21 02:11> - Medical Decision Making X-ray shows right IT fracture. Case discussed with Linsey on-call will be admitted to Dr. Pride (Jacinto Pal) I was available for consultation in the emergency department. The history and physical exam were done by the midlevel provider. I was consulted for this patients care. I reviewed the case with the midlevel provider and based on their presentation of the patient, I agree with the assessment, medical decision making and plan of care as documented. Chart was dictated using [employer] dictation software. Attempts were made to correct any dictation errors however some typographical errors may persist. (Carol Ma) Disposition <Jacinto Pal - Last Filed: 09/03/21 13:10> <Carol Ma - Last Filed: 09/10/21 02:11> Clinical Impression: Fall, Fracture, intertrochanteric, right femur Disposition: ADMITTED IP TO THIS HOSP Condition: Fair
--- NOTE | 2021-09-03 11:41 | XR ---
EXAMINATION TYPE: XR femur RT DATE OF EXAM: 09/03/2021 COMPARISON: None HISTORY: Fall, pain TECHNIQUE: 2 view right femur FINDINGS: Femoral head articulates with the acetabulum. Some minimal degenerative changes present. Th ere is mild narrowing of the joint space. An intertrochanteric fracture is present best visualized on the oblique view. No additional fractures are identified. IMPRESSION: 1. Nondisplaced Intertrochanteric fracture right hip
--- NOTE | 2021-09-03 11:45 | XR ---
EXAMINATION TYPE: XR pelvis AP view DATE OF EXAM: 09/03/2021 COMPARISON: None HISTORY: Fall, pain TECHNIQUE: AP pelvis FINDINGS: Intertrochanteric fracture is faintly visualized. Femoral heads articulate with the acetabulum. Mild joint space narrowing is present bilaterally. Symp hysis pubis and sacroiliac joints are normal. Normal bowel gas is present. IMPRESSION: 1. Intertrochanteric fracture right hip
[2021-09-03] MEDS ORDERED: ONDANSETRON 4 MG/2 ML VIAL IVP PRN (12:27)
[2021-09-03] MEDS ORDERED: HYDROmorphone 0.5 MG/0.5 ML SYRINGE IVP PRN (12:27)
[2021-09-03] MEDS ORDERED: HYDROcodone/APAP 5-325MG 1 EACH TAB PO PRN (12:27)
[2021-09-03] MEDS ORDERED: NALOXONE 0.4 MG/ML 1 ML VIAL IV PRN (12:27)
[2021-09-03] MEDS: SODIUM CHLORIDE 0.9% 1,000 ML IV SCH (12:43)
[2021-09-03 13:17] LABS: Basophils % (A) 0 %; Eosinophils # (A) 0.1 k/uL (0-0.7); Eosinophils % (A) 0 %; HCT 39.4 % (34.0-46.0); HGB 12.5 gm/dL (11.4-16.0); Lymphocytes # (A) 0.9 k/uL (1.0-4.8); Lymphocytes % (A) 7 %; MCHC 31.7 g/dL (31.0-37.0); MCV 97.9 fL (80.0-100.0); Mean Platelet Volume 7.7; Monocytes # (A) 0.4 k/uL (0-1.0); Monocytes % (A) 3 %; Neutrophils # (A) 12.7 k/uL (1.3-7.7); Neutrophils % (A) 89 %; Platelet Count 276 k/uL (150-450); RBC 4.02 m/uL (3.80-5.40); RDW 13.3 % (11.5-15.5); WBC 14.3 k/uL (3.8-10.6)
[2021-09-03 13:30] LABS: Albumin 3.6 g/dL (3.5-5.0); Calcium 9.5 mg/dL (8.4-10.2); Potassium 4.8 mmol/L (3.5-5.1); Total Bilirubin 0.3 mg/dL (0.2-1.3); Total Protein 6.8 g/dL (6.3-8.2)
[2021-09-03 13:32] LABS: INR 0.9 (<1.2); Partial Thromboplastin Time 22.8 sec (22.0-30.0); Prothrombin Time 9.8 sec (9.0-12.0)
[2021-09-03] MEDS ORDERED: ACETAMINOPHEN TAB 325 MG TAB PO PRN (13:54)
[2021-09-03 13:59] LABS: Appearance,Urine Clear (Clear); Bilirubin,Urine Negative (Negative); Blood,Urine Negative (Negative); Color,Urine Yellow; Glucose,Urine (UA) Negative (Negative); Ketones,Urine Negative (Negative); Leukocyte Esterase,Urine Negative (Negative); Nitrite,Urine Negative (Negative); Protein,Urine Negative (Negative); Urobilinogen,Urine <2.0 mg/dL (<2.0)
--- NOTE | 2021-09-03 14:03 | P.HPOR ---
History of Present Illness H&P Date: 09/03/21 Chief Complaint: Right intertrochanteric femur fracture Patient is an 86-year-old female who presented to [facility] for evaluation of a right lower extremity issue after falling today. Patient states that she was walking to the bathroom when she became dizzy and lost her balance falling directly onto the right side. Patient was unable to weight-bear at that time, she was able to crawl to another room and contact her family. She was then brought to the hospital for further evaluation. Images and lab tests were done upon arrival. Images demonstrated a minimally displaced right intertrochanteric femur fracture. Orthopedic team was contacted by the emergency room staff, we were able to review the case. Patient was then admitted under our care with plan for surgical intervention. Patient was evaluated today at bedside in the emergency room, she had multiple family members present. She is resting comfortably. She notes mostly discomfort in the upper aspect of the right lower extremity. She has no left lower extremity discomfort at this time. She has no bilateral upper extremity pain. She denies any new onset cervical, thoracic or lumbar spine pain. She does have a history of chronic back pain which she does take narcotics for which are prescribed by her primary care doctor. She is having no paresthesias of the bilateral upper or lower extremities. She denies any loss of bowel or bladder function at this time. Patient denies any previous surgery to the right lower extremity. Patient does not drive. Patient usually does not use any assistive devices with ambulation. Review of Systems Constitutional: Reports as per HPI Past Medical History Past Medical History: Coronary Artery Disease (CAD), COPD, CVA/TIA, Deep Vein Thrombosis (DVT), Hyperlipidemia, Hypertension, Myocardial Infarction ([place]), Osteoarthritis (OA), Thyroid Disorder Additional Past Medical History / Comment(s): DVT leg in 1972, disc problems, ear problems & drainage @times, states has "left sided heart blockage and 2 holes in heart" Last Myocardial Infarction Date:: 05/11/15 History of Any Multi-Drug Resistant Organisms: None Reported Past Surgical History: Appendectomy, Coronary Bypass/CABG, Heart Catheterization, Heart Catheterization With Stent, Hysterectomy Additional Past Surgical History / Comment(s): left carotid endarterectomy, 5 ve ssel CABG 1999, nasal surg, polyps removed vocal cords, mult stents in heart Past Anesthesia/Blood Transfusion Reactions: Previous Problems w/ Anesthesia Additional Past Anesthesia/Blood Transfusion Reaction / Comment(s): some kind of medication injection given during nasal surg. that caused vision problems for 3 mos.-doesn't know what it was Date of Last Stent Placement:: 05/11/15 Past Psychological History: No Psychological Hx Reported Smoking Status: Current every day smoker Past Alcohol Use History: None Reported Past Drug Use History: None Reported - Past Family History Mother History Unknown: Yes Additional Family Medical History / Comment(s): pt adopted, biological hx unknown. Has sister also, but never able to contact. Medications and Allergies Home Medications Medication Instructions Recorded Confirmed Type Aspirin 81 mg PO DAILY 01/22/15 09/03/21 History Clopidogrel [Plavix] 75 mg PO DAILY 01/22/15 09/03/21 History Levothyroxine Sodium [Synthroid] 25 mcg PO DAILY 01/22/15 09/03/21 History Nitroglycerin Sl Tabs [Nitrostat] 0.4 mg SL Q5M PRN 01/22/15 09/03/21 History Pravastatin Sodium [Pravachol] 20 mg PO HS 08/21/15 09/03/21 History HYDROcodone/APAP 10-325MG [[place] 1 tab PO TID 03/11/21 09/03/21 History 10-325] Omeprazole Magnesium [PriLOSEC OTC] 20 mg PO DAILY PRN 03/11/21 09/03/21 History lisinopriL [Zestril] 5 mg PO HS 03/11/21 09/03/21 History Metoprolol Succinate [Toprol XL] 50 mg PO DAILY 08/27/21 09/03/21 History Vit C/E/Zn/Coppr/Lutein/Zeaxan 1 cap PO BID 08/27/21 09/03/21 History [Preservision Areds 2 Softgel] Meclizine [Antivert] 25 mg PO TID PRN #15 tab 08/28/21 09/03/21 Rx Allergies Allergy/AdvReac Type Severity Reaction Status Date / Time erythromycin base Allergy Unknown Verified 09/03/21 11:42 [From E-Mycin] Penicillins Allergy Unknown Verified 09/03/21 11:42 Childhood atorvastatin calcium AdvReac unable to Verified 09/03/21 11:42 [From Lipitor] walk cortisone AdvReac HEART Verified 09/03/21 11:42 ATTACK Physical Examination Right lower extremity: No obvious open lesions or sores are visualized throughout the extremity, no sniff acute areas of erythema or soft tissue swelling Obvious tenderness with palpation involving the proximal aspect of the right lower extremity, mainly over the greater trochanter region. She is nontender involving the knee, lower leg, foot or ankle Logroll maneuver of the hip reproduces significant discomfort, hip range of motion was not assessed along with knee range of motion. Plantar flexion, dorsiflexion, EHL, FHL are intact, no focal deficits appreciated Compartments are soft and compressible throughout the lower extremity, calf is soft no tenderness with palpation Sensory exam to light touch is intact of the extremity Dorsalis pedis pulses 2+ General orthopedic exam: Full range of motion is noted in the bilateral upper extremities in all major muscle groups, no point tenderness is appreciated in the bilateral upper extremities. Her sensory exam to light touch throughout the bilateral upper extremities intact, radial and ulnar pulses bilaterally are 2+ No lesions or sores are visualized throughout the left lower extremity, her range of motion all major muscle groups is intact in that extremity, no focal neuro deficits. Results - Labs Labs: Abnormal Lab Results - Last 24 Hours (Table) 09/03/21 09/03/21 Range/Units 13:00 13:00 WBC 14.3 H (3.8-10.6) k/uL Neutrophils # 12.7 H (1.3-7.7) k/uL Lymphocytes # 0.9 L (1.0-4.8) k/uL Chloride 111 H (98-107) mmol/L BUN 22 H (7-17) mg/dL H & H 09/03/21 Range/Units 13:00 Hgb 12.5 (11.4-16.0) gm/dL Hct 39.4 (34.0-46.0) % Coagulation 09/03/21 Range/Units 13:00 INR 0.9 (<1.2) Result Diagrams: 09/03/21 13:00 09/03/21 13:00 - Diagnostic results Hip x-ray: report reviewed, image reviewed (Multiple images were reviewed of the right lower extremity. Images demonstrate a minimally displaced right intertrochanteric femur fracture. Osteoarthritic signs of the right hip are present with loss of joint space and osteophyte formation) Assessment and Plan Assessment: Minimally displaced right intertrochanteric femur fracture Status post fall from standing History of cardiac bypass Other medical comorbidities Plan: I was able to discuss the case, this including both physical exam findings and imaging studies my attending Dr. Pride. Our plan is to proceed with surgical intervention, more specifically an intramedullary nail for the right intertrochanteric femur fracture. I did discuss the case, include surgical options with the patient and her family today at bedside. Risks and benefits were discussed, this including but not exclusive to infection, blood loss, blood clots, neurovascular injury, and adequate healing of bone, need for subsequent surgery. They are all in good understanding like to proceed. Planning to proceed with surgery on 09/05/2021 Taking into consideration her cardiac history, clearance will be asked from the cardiology department for surgery. Internal medicine recommendations Pain control, utilize oral medications and IV for breakthrough pain GI and DVT prophylaxis, Plavix will be on hold at this time, we'll restart after surgery Urinary catheter placement Nonweightbearing right lower extremity at this time PT/OT evaluation after surgery Discharge planning: Discussed with patient depending on she progresses may require subacute rehab Further recommendations to follow Time with Patient: Less than 30
[2021-09-03] MEDS: HYDROmorphone 1 MG/ML 1 ML SYRINGE IVP PRN ×3 (15:36→22:39)
[2021-09-03] MEDS ORDERED: PANTOPRAZOLE 40 MG TABLET PO PRN (17:05)
[2021-09-03] MEDS: PRAVASTATIN SODIUM 20 MG TAB PO SCH (21:18)
[2021-09-03] MEDS: HYDROcodone/APAP 10-325MG 1 EACH TAB PO SCH (21:18)
[2021-09-03] MEDS: lisinopriL 5 MG TAB PO SCH (21:18)
[2021-09-04] MEDS: SODIUM CHLORIDE 0.9% 1,000 ML IV SCH (00:04)
[2021-09-04] MEDS: HYDROmorphone 1 MG/ML 1 ML SYRINGE IVP PRN ×5 (02:08→16:52)
[2021-09-04] MEDS: LEVOTHYROXINE 25 MCG TAB PO SCH (05:40)
[2021-09-04] MEDS: HYDROcodone/APAP 10-325MG 1 EACH TAB PO SCH ×3 (07:40→21:12)
[2021-09-04] MEDS: METOPROLOL SUCCINATE (ER) 50 MG TAB.ER.24H PO SCH (07:40)
[2021-09-04] MEDS: ASPIRIN 81 MG PO SCH (07:40)
--- NOTE | 2021-09-04 10:17 | P.CRDCN ---
History of Present Illness History of present illness: HISTORY OF PRESENTING ILLNESS This is a pleasant 86-year-old who is seen for preop clearance. She has a history of coronary artery disease with prior CABG as well as stenting, carotid artery stenosis status post carotid endarterectomy, CVA, DVT, anemia, hypertension, hyperlipidemia, tobacco abuse, PAD, ischemic cardiomyopathy with ejection fraction 35-40% and moderate to severe mitral regurgitation by echo 2015. Patient had previously followed with Dr. Armando however it has been approximately 4 years since last seen. She states that she has been doing fairly well from a cardiac standpoint and denies any chest pain, pressure, shortness breath. She is able to walk up a flight of stairs without stopping and without any angina or dyspnea. She has not had any recent cardiac workup. Unfortunately she has been having episodes of disequilibrium where she will feel the room spinning around her. This has been attributed to vertigo and she was recently seen in emergency department 08/27/2021 and was prescribed Antivert. She also had a CTA which showed 60% stenosis of the left internal carotid artery however no other significant disease. She was discharged home and unfortunately had a fall laded to the room spinning around her and broke her right hip. She denies any actual lightheadedness or syncope. EKG shows normal sinus rhythm, nonspecific 0.[address] depressions in the inferior leads. Blood work shows white blood cell 14.3, hemoglobin 12.5, platelets 276, BUN 22, creatinine 0.7, AST 24, ALT 16. REVIEW OF SYSTEMS At the time of my exam: CONSTITUTIONAL: Denies fever or chills. CARDIOVASCULAR: Denies chest pain, shortness of breath, orthopnea, PND or pal pitations. RESPIRATORY: Denies cough. GASTROINTESTINAL: Denies abdominal pain, diarrhea, constipation, nausea or vomiting. MUSCULOSKELETAL: Denies myalgias. NEUROLOGIC: Denies numbness, tingling or weakness. ENDOCRINE: Denies fatigue, weight change, polydipsia or polyurina. GENITOURINARY: Denies burning, hematuria or urgency with micturation. HEMATOLOGIC: Denies history of anemia or bleeding. PHYSICAL EXAMINATION Vital signs reviewed. CONSTITUTIONAL: No apparent distress, frail HEENT: Head is normocephalic. Pupils are equal, round. Sclerae anicteric. Mucous membranes of the mouth are moist. No JVD. +left carotid bruit. CHEST EXAMINATION: Lungs are clear to auscultation. No chest wall tenderness is noted on palpation or with deep breathing. HEART EXAMINATION: Regular rate and rhythm. S1, S2 heard. +3/6 systolic murmur, no gallops or rub. ABDOMEN: Soft, nontender. Positive bowel sounds. EXTREMITIES: 2+ peripheral pulses, no lower extremity edema and no calf tenderness. NEUROLOGIC EXAMINATION: Patient is awake, alert and oriented x3. ASSESSMENT 1. Preop clearance 2. Status post right hip fracture 3. Fall, appears related to vertigo. No syncopal or near syncopal events 4. Coronary artery disease status post CABG, PCI 5. Ischemic cardiomyopathy 6. Moderate to severe mitral regurgitation 7. Tobacco abuse 8. PAD 9. Carotid stenosis, 60% by recent CTA 10. Vertigo 11. History of stroke 12. History of DVT 13. Hypertension 14 hyperlipidemia PLAN It has been approximately 4 years since her last carotid intervention and longer since any coronary intervention and therefore agree with stopping Plavix. Would recommend continuing aspirin through surgery given extensive PAD and CAD. Patient is able to do 4 metastases of activity without any dyspnea or angina-type symptoms and although she has high risk given extensive CAD, PAD, cardiomyopathy, moderate to severe mitral regurgitation benefits outweigh the risks and patient is cleared from a cardiology standpoint. We will check echo to evaluate degree of cardiomyopathy and mitral regurgitation however this would not prohibit surgery. We will stop IV fluids for now and recommend cautious IV fluids if needed. Continue with current heart failure regimen with lisinopril and metoprolol. Further recommendations to follow. Past Medical History Past Medical History: Coronary Artery Disease (CAD), COPD, CVA/TIA, Deep Vein Thrombosis (DVT), Hyperlipidemia, Hypertension, Myocardial Infarction (PR), Osteoarthritis (OA), Thyroid Disorder Additional Past Medical History / Comment(s): DVT leg in 1972, disc problems, ear problems & drainage @times, states has "left sided heart blockage and 2 holes in heart" Last Myocardial Infarction Date:: 05/11/15 History of Any Multi-Drug Resistant Organisms: None Reported Past Surgical History: Appendectomy, Coronary Bypass/CABG, Heart Catheterization, Heart Catheterization With Stent, Hysterectomy Additional Past Surgical History / Comment(s): left carotid endarterectomy, 5 vessel CABG 1999, nasal surg, polyps removed vocal cords, mult stents in heart Past Anesthesia/Blood Transfusion Reactions: Previous Problems w/ Anesthesia Additional Past Anesthesia/Blood Transfusion Reaction / Comment(s): some kind of medication injection given during nasal surg. that caused vision problems for 3 mos.-doesn't know what it was Date of Last Stent Placement:: 05/11/15 Past Psychological History: No Psychological Hx Reported Smoking Status: Current every day smoker Past Alcohol Use History: None Reported Past Drug Use History: None Reported - Past Family History Mother History Unknown: Yes Additional Family Medical History / Comment(s): pt adopted, biological hx unknown. Has sister also, but never able to contact. Medications and Allergies Home Medications Medication Instructions Recorded Confirmed Type Aspirin 81 mg PO DAILY 01/22/15 09/03/21 History Clopidogrel [Plavix] 75 mg PO DAILY 01/22/15 09/03/21 History Levothyroxine Sodium [Synthroid] 25 mcg PO DAILY 01/22/15 09/03/21 History Nitroglycerin Sl Tabs [Nitrostat] 0.4 mg SL Q5M PRN 01/22/15 09/03/21 History Pravastatin Sodium [Pravachol] 20 mg PO HS 08/21/15 09/03/21 History HYDROcodone/APAP 10-325MG [[place] 1 tab PO TID 03/11/21 09/03/21 History 10-325] Omeprazole Magnesium [PriLOSEC OTC] 20 mg PO DAILY PRN 03/11/21 09/03/21 History lisinopriL [Zestril] 5 mg PO HS 03/11/21 09/03/21 History Metoprolol Succinate [Toprol XL] 50 mg PO DAILY 08/27/21 09/03/21 History Vit C/E/Zn/Coppr/Lutein/Zeaxan 1 cap PO BID 08/27/21 09/03/21 History [Preservision Areds 2 Softgel] Meclizine [Antivert] 25 mg PO TID PRN #15 tab 08/28/21 09/03/21 Rx Allergies Allergy/AdvReac Type Severity Reaction Status Date / Time erythromycin base Allergy Unknown Verified 09/03/21 11:42 [From E-Mycin] Penicillins Allergy Unknown Verified 09/03/21 11:42 Childhood atorvastatin calcium AdvReac unable to Verified 09/03/21 11:42 [From Lipitor] walk cortisone AdvReac HEART Verified 09/03/21 11:42 ATTACK Physical Exam Vitals: Vital Signs Temp Pulse Pulse Resp BP BP Pulse Ox 09/04/21 07:53 98.1 F 72 18 129/61 92 L 09/04/21 07:43 92 L 09/04/21 00:39 98.3 F 75 112/53 92 L 09/03/21 22:54 106/43 09/03/21 18:48 83 18 144/53 96 09/03/21 18:30 78 16 144/53 94 L 09/03/21 15:21 82 18 130/45 95 09/03/21 10:12 97.6 F 76 20 132/50 96 Intake and Output 09/03/21 09/04/21 09/04/21 22:59 06:59 14:59 Output Total 1500 Balance -1500 Output: Urine 1500 Other: Voiding Method Indwelling Catheter Indwelling Catheter Results 09/03/21 13:00 09/03/21 13:00 Cardiac Enzymes 09/03/21 Range/Units 13:00 AST 24 (14-36) U/L Coagulation 09/03/21 Range/Units 13:00 PT 9.8 (9.0-12.0) sec APTT 22.8 (22.0-30.0) sec CBC 09/03/21 Range/Units 13:00 WBC 14.3 H (3.8-10.6) k/uL RBC 4.02 (3.80-5.40) m/uL Hgb 12.5 (11.4-16.0) gm/dL Hct 39.4 (34.0-46.0) % Plt Count 276 (150-450) k/uL Comprehensive Metabolic Panel 09/03/21 Range/Units 13:00 Sodium 141 (137-145) mmol/L Potassium 4.8 (3.5-5.1) mmol/L Chloride 111 H (98-107) mmol/L Carbon Dioxide 26 (22-30) mmol/L BUN 22 H (7-17) mg/dL Creatinine 0.72 (0.52-1.04) mg/dL Glucose 96 (74-99) mg/dL Calcium 9.5 (8.4-10.2) mg/dL AST 24 (14-36) U/L ALT 16 (4-34) U/L Alkaline Phosphatase 74 (38-126) U/L Total Protein 6.8 (6.3-8.2) g/dL Albumin 3.6 (3.5-5.0) g/dL Current Medications Generic Name Dose Route Start Last Admin Trade Name Freq PRN Reason Stop Dose Admin Acetaminophen 650 mg 09/03/21 13:54 Acetaminophen Tab 325 Mg Tab PO Q6HR PRN Fever and/ or Pain Hydrocodone Bitart/Acetaminophen 1 each 09/03/21 15:28 Hydrocodone/Apap 10-325mg 1 Each Tab PO Q8HR PRN Pain Hydrocodone Bitart/Acetaminophen 1 each 09/03/21 22:00 09/04/21 07:40 Hydrocodone/Apap 10-325mg 1 Each Tab PO 1 each TID DAWNA Administration Aspirin 81 mg 09/04/21 09:00 09/04/21 07:40 Aspirin 81 Mg PO 81 mg DAILY DAWNA Administration Cyclobenzaprine HCl 5 mg 09/03/21 13:54 Cyclobenzaprine 5 Mg Tab PO BID PRN Muscle Spasm Hydromorphone HCl 1 mg 09/03/21 15:27 09/04/21 09:55 Hydromorphone 1 Mg/Ml 1 Ml Syringe IVP 1 mg Q3HR PRN Administration Pain Sodium Chloride 1,000 mls @ 75 mls/hr 09/03/21 12:30 09/04/21 00:04 Saline 0.9% IV 75 mls/hr .[id number] DAWNA Administration Levothyroxine Sodium 25 mcg 09/04/21 06:30 09/04/21 05:40 Levothyroxine 25 Mcg Tab PO 25 mcg 0630 DAWNA Administration Lisinopril 5 mg 09/03/21 21:00 09/03/21 21:18 Lisinopril 5 Mg Tab PO 5 mg HS DAWNA Administration Metoprolol Succinate 50 mg 09/04/21 09:00 09/04/21 07:40 Metoprolol Succinate (Er) 50 Mg Tab.Er.24h PO 50 mg DAILY DAWNA Administration Naloxone HCl 0.2 mg 09/03/21 12:27 Naloxone 0.4 Mg/Ml 1 Ml Vial IV Q2M PRN Opioid Reversal Ondansetron HCl 4 mg 09/03/21 12:27 Ondansetron 4 Mg/2 Ml Vial IVP Q8HR PRN Nausea And Vomiting Pantoprazole Sodium 40 mg 09/03/21 17:05 Pantoprazole 40 Mg Tablet PO DAILY PRN Heartburn Pravastatin Sodium 20 mg 09/03/21 21:00 09/03/21 21:18 Pravastatin Sodium 20 Mg Tab PO 20 mg HS DAWNA Administration Intake and Output 09/03/21 09/04/21 09/04/21 22:59 06:59 14:59 Output Total 1500 Balance -1500 Output: Urine 1500 Other: Voiding Method Indwelling Catheter Indwelling Catheter 09/03/21 13:00 09/03/21 13:00
[2021-09-04] MEDS: NICOTINE 14MG/24HR PATCH TRANSDERM SCH (10:59)
--- NOTE | 2021-09-04 12:01 | ECHOF ---
Referral Reason:re: LV function MEASUREMENTS -------- HEIGHT: 154.9 cm WEIGHT: 43.5 kg BP: 129/61 RVIDd: 3.3 cm (< 3.3) IVSd: 1.3 cm (0.6 - 1.1) LVIDd: 3.9 cm (3.9 - 5.3) LVPWd: 1.2 cm (0.6 - 1.1) IVSs: 1.2 cm LVIDs: 2.8 cm LVPWs: 1.6 cm LAESV Index (A-L): 51.09 ml/m Ao Diam: 2.7 cm (2.0 - 3.7) AV Cusp: 1.4 cm (1.5 - 2.6) MV EXCURSION: 14.991 mm (> 18.000) MV EF SLOPE: 133 mm/s (70 - 150) EPSS: 2.4 cm MV E Randall: 1.05 m/s MV DecT: 145 ms MV A Randall: 1.06 m/s MV E/A Ratio: 0.99 AV maxP.42 mmHg AV meanP.27 mmHg AR PHT: 305 ms RAP: 5.00 mmHg RVSP: 33.05 mmHg FINDINGS -------- Sinus rhythm. This was a technically adequate study. The left ventricular size is normal. There is mild concentric left ventricular hypertrophy. Overa ll left ventricular systolic function is low-normal with, an EF between 50 - 55 %. Septal wall carlos on is delayed and consistent with prior cardiac surgery. The right ventricle is mildly enlarged. LA is severely dilated >40 ml/m2 The right atrial size is normal. Interatrial and interventricular septum intact. Mobile interatrial septum. There is moderate aortic regurgitation. There is mild aortic stenosis present. The maximum veloci ty across the aortic valve is 2.71m/s. Peak/mean gradient across the Aortic Valve is 29.42mmHg / 16 .27mmHg. Moderate mitral annular calcification present. [id number] mitral regurgitation is present. Mild tricuspid regurgitation present. There is no evidence of pulmonary hypertension. The right v entricular systolic pressure, as measured by Doppler, is 33.05mmHg. There is no pulmonic regurgitation present. The aortic root size is normal. The inferior vena cava is mildly dilated. There is no pericardial effusion. CONCLUSIONS -------- 1. The left ventricular size is normal. 2. There is mild concentric left ventricular hypertrophy. 3. Overall left ventricular systolic function is low-normal with, an EF between 50 - 55 %. 4. The right ventricle is mildly enlarged. 5. LA is severely dilated >40 ml/m2 6. There is moderate aortic regurgitation. 7. There is mild aortic stenosis present. 8. The maximum velocity across the aortic valve is 2.71m/s. 9. Peak/mean gradient across the Aortic Valve is 29.42mmHg / 16.27mmHg. 10. Moderate mitral annular calcification present. 11. Glvfbugb-[id number] mitral regurgitation is present. 12. Mild tricuspid regurgitation present. FURNITURE DETAILER: Jyoti Ma RDCS
--- NOTE | 2021-09-04 12:19 | P.PN ---
Subjective Progress Note Date: 09/04/21 Principal diagnosis: Right hip IT fracture status post fall Patient was seen at bedside this morning lying semirecumbent in bed. Patient says she is still having significant right hip pain. She points to the area where the most pain is in the right groin and right hip. Patient states this pain radiates down her right leg. Patient rates the pain as 10/10. Patient says some of the IV pain medication does help for a while, but the pain comes back after a while. Patient denies any new injuries/falls. Patient denies chest pain, fever, chest breath, nausea, vomiting, change in vision, loss of bowel/bladder control. Objective - Vital Signs Vital signs: Vital Signs Temp 98.1 F 09/04/21 07:53 Pulse 72 09/04/21 07:53 Resp 18 09/04/21 07:53 BP 129/61 09/04/21 07:53 Pulse Ox 92 L 09/04/21 07:53 Intake & Output 09/03/21 09/04/21 09/04/21 18:59 06:59 18:59 Output Total 1500 Balance -1500 Weight 43.545 kg Output: Urine 1500 Other: Voiding Method Indwelling Catheter Indwelling Catheter - Exam Right lower extremity Inspection: Negative for any erythema, open fractures, nodules, significant ecchymoses. Right leg is shortened externally rotated Palpation: Significant tenderness inflation along the right lateral hip and right groin. Nontender to palpation throughout rest of exam. Log roll maneuver does reproduce pain in the right hip. Sensation: Sensation is symmetric, bilateral intact throughout lower extremities. Neurovascular status: DP pulses are intact bilaterally, 2+. Cap refill below 3 seconds bilaterally in digits of lower extremities. Range of motion: Patient will flex the right hip. Patient unable move her leg off the bed. Left lower extremity full range of motion Motor: 4+/5 no major motor groups of bilateral upper extremities and left lower extremity. Right lower extremity motor exam unable to be performed due to pain. - Labs CBC & Chem 7: 09/03/21 13:00 09/03/21 13:00 Labs: Abnormal Lab Results - Last 24 Hours (Table) 09/03/21 09/03/21 Range/Units 13:00 13:00 WBC 14.3 H (3.8-10.6) k/uL Neutrophils # 12.7 H (1.3-7.7) k/uL Lymphocytes # 0.9 L (1.0-4.8) k/uL Chloride 111 H (98-107) mmol/L BUN 22 H (7-17) mg/dL Assessment and Plan Assessment: Right hip IT fracture status post fall Multiple medical comorbidities Plan: 1. Right hip IT fracture, minimally displaced - surgery scheduled for tomorrow, 1right hip IM nail . Patient to be nothing by mouth after midnight tonight. 2. Appreciate medical management/cardio management - patient has been cleared by cardio for surgery tomorrow 3. Pain management - IV and oral pain meds as needed 4. DVT prophylaxis - hold plavix at this time. May resume after surgery. 5. GI prophylaxis - protonix 6. PT/OT - nonweightbearing right leg. Time with Patient: Less than 30
[2021-09-04 13:01] VITALS: BMI 18.1
[2021-09-04] MEDS: HEPARIN SODIUM,PORCINE/PF 5,000 UNIT/0.5 ML SYRINGE SQ SCH (15:57)
[2021-09-04] MEDS: PRAVASTATIN SODIUM 20 MG TAB PO SCH (20:27)
[2021-09-04] MEDS: lisinopriL 5 MG TAB PO SCH (20:27)
--- NOTE | 2021-09-04 20:40 | CONS ---
CONSULTATION DATE OF SERVICE: 09/03/2021 HISTORY OF PRESENT ILLNESS: White female who got dizzy at home with the room spinning and failed Antivert. She became dizzy and lightheaded and maybe felt pressure behind her ears. She fell down. She broke her right hip. She is admitted. She is going to have surgery tomorrow. She normally takes Plavix, which will be held. Plavix and aspirin will be held. We will give her subcu heparin until surgery on Tuesday tomorrow for which she is going to have surgery of her hip. We will give her 5000 units subcu q.8 hours until surgery, her Plavix on hold. Since she has been busy over the last month and too dizzy, not responding to Antivert. PAST MEDICAL HISTORY: Hypertension, GERD, dyslipidemia, coronary artery disease. MEDICATION: Antivert 12.5 t.i.d. p.r.n., Plavix 75 daily, nitroglycerin 0.4 sublingual p.r.n., aspirin 81 daily, [place] 10/325 t.i.d., Synthroid 25 mcg daily, lisinopril 5 daily, metoprolol succinate 50 daily, omeprazole 20 daily, pravastatin 20 daily. Habits are reviewed. Medications reviewed. History of coronary artery disease, COPD, CVA, TIA, DVT, hypertension, dyslipidemia, myocardial infarction, osteoarthritis, hypothyroidism. SURGERIES: Appendectomy, cataract surgery, heart catheterization, stent. SOCIAL HISTORY: Current everyday smoker. No alcohol. No drugs. FAMILY HISTORY: The patient is adopted. Unknown PHYSICAL EXAMINATION: Temp 97.6, pulse 76, respirations 18 to 20, blood pressure 130s over 50s, cardiovascular S1, S2. Lungs clear. Extremities: No cyanosis, clubbing, edema. Neurologic: Cranial nerves intact. Psych: Fair mood and affect. Pupils equal, round, reactive. X-ray shows right IT fracture. IMPRESSION: Admitted. She had a fall, fracture intertrochanteric of right hip. Subcu heparin until surgery. Continue home medicines. Blood pressure monitoring. Prognosis guarded. MMLEWL / LAMARN: [id number] /
[2021-09-05] MEDS: HEPARIN SODIUM,PORCINE/PF 5,000 UNIT/0.5 ML SYRINGE SQ SCH ×3 (00:15→16:48)
[2021-09-05] MEDS: HYDROcodone/APAP 10-325MG 1 EACH TAB PO PRN ×2 (00:22→16:49)
[2021-09-05] MEDS: CYCLOBENZAPRINE 5 MG TAB PO PRN ×2 (00:22→20:38)
[2021-09-05] MEDS: LEVOTHYROXINE 25 MCG TAB PO SCH (05:19)
[2021-09-05] MEDS: HYDROmorphone 1 MG/ML 1 ML SYRINGE IVP PRN ×3 (07:27→21:54)
[2021-09-05] MEDS ORDERED: PROPOFOL 10 MG/ML 20 ML VIAL IV ONE (08:55)
[2021-09-05] MEDS ORDERED: SUCCINYLCHOLINE CHLORIDE 100 MG/5 ML SYR IV ONE (08:55)
[2021-09-05] MEDS ORDERED: LIDOCAINE 1% INJ 10MG/ML (20 ML MDV) ONE (08:55)
[2021-09-05] MEDS ORDERED: PHENYLEPHRINE-0.9% NACL SYG 1,000 MCG/10 ML SYRINGE ONE (08:55)
[2021-09-05] MEDS ORDERED: fentaNYL (PF) 50 MCG/ML 2 ML AMP ONE (08:55)
[2021-09-05] MEDS ORDERED: IV FLUID CONTINUATION 1,000 ML IV ONE (09:01)
[2021-09-05] MEDS ORDERED: SODIUM CHLORIDE 0.9% 100 ML with ceFAZolin 2,000 MG IV ONE ×2 (09:22)
[2021-09-05] MEDS ORDERED: LACTATED RINGERS 1,000 ML IV ONE (09:43)
[2021-09-05] MEDS: HYDROcodone/APAP 10-325MG 1 EACH TAB PO SCH (09:45)
[2021-09-05] MEDS: METOPROLOL SUCCINATE (ER) 50 MG TAB.ER.24H PO SCH (09:45)
[2021-09-05] MEDS ORDERED: CLINDAMYCIN 600 MG in SODIUM CHLORIDE 0.9% 1,000 ML IRRIGATION ONE (09:45)
[2021-09-05] MEDS: ASPIRIN 81 MG PO SCH (09:45)
[2021-09-05] MEDS ORDERED: MAGNESIUM HYDROXIDE 2,400 MG/10 ML CUP PO PRN (10:12)
--- NOTE | 2021-09-05 10:16 | P.OP ---
Date of Procedure: 09/05/21 Preoperative Diagnosis: Mildly displaced right intertrochanteric femur fracture Postoperative Diagnosis: Same Procedure(s) Performed: Trochanteric intramedullary nailing right intertrochanteric femur fracture Implants: [place] short gamma [id number], 85 mm compression hip screw Anesthesia: LINDA Surgeon: Jimbo Pride Spikemaking Supervisor #1: Bobby Singh Estimated Blood Loss (ml): 50 Pathology: none sent Condition: stable Disposition: PACU Indications for Procedure: The patient's 86-year-old female presents after falling injuring her right hip. Upon evaluation she was noted mildly displaced right intertrochanteric femur fracture. A discussion of the risks and benefits of operative intervention was made with patient and her family. He opted to proceed preoperative risks to include infection, neurovascular injury, development of blood clots, possible development of nonunion/malunion and need for subsequent procedures was discussed. Informed consent was obtained. Operative Findings: As below Description of Procedure: The patient was brought to the operating room, and after induction of general anesthesia was placed supine on the Chika table. Bony prominences were appropriately padded. The fracture was reduced with longitudinal traction and internal rotation of the right lower extremity. This is verified with fluoroscopy on the AP and lateral views. The right lower extremity was then prepped and draped in normal fashion. A 6 cm incision was then made just proximal greater trochanter. Skin and subcu tissues were divided sharply. Electrocautery was used for hemostasis. The gluteus natacha fascia was split in line with the skin incision. Blunt dissection was then made down to level the tip of the greater trochanter. A starting awl was then inserted with the aid of fluoroscopy. A ball-tipped guidewire was inserted down the femur. Distally I reamed up to 12.5 mm. Proximally I reamed 15.5 mm to the level of the lesser trochanter. A short 125 gamma nail was then gently inserted over the guidewire. The guidewire was removed. A threaded guidepin was placed into the centercenter position of the femoral head and neck to within 5 mm of the articular surface on the AP and lateral views. A triple reamer was used to depth of 80 mm. An 85 mm compression screw was inserted with the aid of fluoroscopy. A setscrew was placed. The distal static locking screw was inserted utilizing the alignment guide. Final fluoroscopic views showed adequate reduction of the fracture and placement of the implant. The wounds were irrigated with normal saline. The fascia was closed with running 0 Vicryl suture. The subcu tissues were reapproximated interrupted 2-0 Vicryl sutures. The skin was reprepped with yudith. A sterile dressing was applied. The patient was awoken from general anesthesia and transferred to the recovery room in fair condition. Blood loss was estimated 50 mL. occasional were incurred. Sponge and needle counts were correct at the of end the case. Conor CUTLER assisted during the major components the case to include positioning, reduction, exposure, implantation, and closure.
[2021-09-05] MEDS ORDERED: HYDROmorphone 0.5 MG/0.5 ML SYRINGE IVP ONE ×4 (10:26→10:57)
--- NOTE | 2021-09-05 11:13 | XR ---
EXAMINATION TYPE: XR Hip Limited RT, FL guidance operating room DATE OF EXAM: 09/05/2021 Comparison: None Clinical History: 86-year-old female RIGHT HIP IM NAIL Findings: Images show antegrade intramedullary nail and screw fixation on the right. Alignment grossly anatomic . FLUOROSCOPY Fluoroscopy time of 36 seconds was used during right hip IM nail internal fixation. 4 image/s docume nt/s the procedure. Impression: Intraoperative fluoroscopy as above.
[2021-09-05] MEDS: NICOTINE 14MG/24HR PATCH TRANSDERM SCH (12:19)
[2021-09-05] MEDS: lisinopriL 5 MG TAB PO SCH (20:38)
[2021-09-05] MEDS: PRAVASTATIN SODIUM 20 MG TAB PO SCH (20:38)
--- NOTE | 2021-09-05 22:40 | PN ---
PROGRESS NOTE 86-year-old white female, status post hip surgery for right hip. Remains on broad- spectrum antibiotics for otitis media bilaterally. Temp 98, blood pressure 140 over 40s. O2 is 95 on 3 L. Cardiovascular S1, S2. Lungs scattered wheeze and rhonchi. Hematology: Negative Homans. ASSESSMENT: 1. Right hip fracture. 2. Chronic obstructive pulmonary disease. 3. Heparin subcu. Continue Rocephin. PROGNOSIS: Guarded. Continue blood pressure medications and thyroid medications. Prognosis guarded. MMODL / IJN: [id number] /
[2021-09-05] MEDS: SENNOSIDES-DOCUSATE SODIUM 1 EACH TAB PO SCH (23:35)
[2021-09-06] MEDS: HEPARIN SODIUM,PORCINE/PF 5,000 UNIT/0.5 ML SYRINGE SQ SCH ×3 (01:04→16:29)
[2021-09-06] MEDS: HYDROmorphone 1 MG/ML 1 ML SYRINGE IVP PRN ×4 (04:22→17:13)
[2021-09-06] MEDS: LEVOTHYROXINE 25 MCG TAB PO SCH (05:49)
[2021-09-06] MEDS: NICOTINE 14MG/24HR PATCH TRANSDERM SCH (08:13)
[2021-09-06] MEDS: ASPIRIN 81 MG PO SCH (08:13)
[2021-09-06] MEDS: METOPROLOL SUCCINATE (ER) 50 MG TAB.ER.24H PO SCH (08:13)
--- NOTE | 2021-09-06 09:28 | P.PN ---
Subjective Progress Note Date: 09/06/21 Principal diagnosis: s/p IM nail right IT femur fracture Patient was examined today at bedside, she is resting in her hospital bed. She states that the pain is currently controlled with current medication. Urinary catheter still in place. She denies any headaches, lightheadedness, chest pain or shortness of breath. Objective - Vital Signs Vital signs: Vital Signs Temp 98.3 F 09/06/21 07:19 Pulse 92 09/06/21 07:19 Resp 18 09/06/21 07:19 BP 156/63 09/06/21 07:19 Pulse Ox 97 09/06/21 07:19 Intake & Output 09/05/21 09/06/21 09/06/21 18:59 06:59 18:59 Intake Total 1051 Output Total 2385 1200 Balance -1334 -1200 Weight 43.545 kg Intake: IV 1051 Output: Urine 2335 1200 Estimated Blood Loss 50 Other: Voiding Method Indwelling Catheter Indwelling Catheter - Exam Right lower extremity: The foam dressings are in place, there is no saturation appreciated. There is minimal soft tissue swelling and ecchymosis surrounding the medial and lateral aspects of the incision. Calf is soft, no tenderness with palpation. Plantar flexion, dorsiflexion, EHL, FHL are intact. Sensory exam to light touch throughout the extremity is intact, dorsal pedis pulses 2+. - Labs CBC & Chem 7: 09/03/21 13:00 09/03/21 13:00 Assessment and Plan Assessment: Postoperative day #1 status post IM nail right intertrochanteric femur fracture Plan: Pain control, continue with current medication. Try to avoid IV pain medication unless severe pain is noted DVT prophylaxis, currently taken heparin 5000 units every 8 hours, cardiology recommendations appreciated for yes/no on restarting Plavix. If Plavix is not needed going forth, our recommendations for the femur fracture status post surgery would be either Lovenox or heparin for 1 month. Wound care, dressings are in good position and condition. Opti foam dressings can stay in place until 09/12/2021 Weight-bear as tolerated, PT/OT recommendations. Recommend walker at all times Other medical communication specialist recommendations Discussed with patient will leave urinary catheter in place until morning of 09/07/2021 Discharge planning: Patient is hopeful to return to home with home health care, she also will have family around to help. Planning for discharge on 09/08/2021, possibly 09/07/2021 if she progresses Time with Patient: Less than 30
[2021-09-06 10:53] LABS: Basophils # (A) 0.03 X 10*3/uL (0.00-0.10); Basophils % (A) 0.3 %; Eosinophils # (A) 0.14 X 10*3/uL (0.04-0.35); Eosinophils % (A) 1.3 %; HCT 31.3 % (37.2-46.3); HGB 9.5 g/dL (12.0-15.0); Lymphocytes # (A) 0.76 X 10*3/uL (0.90-5.00); Lymphocytes % (A) 7.2 %; MCH 29.8 pg (27.0-32.0); MCHC 30.4 g/dL (32.0-37.0); MCV 98.1 fL (80.0-97.0); Mean Platelet Volume 10.9 fL (9.5-12.2); Monocytes # (A) 0.77 X 10*3/uL (0.20-1.00); Monocytes % (A) 7.3 %; Neutrophils # (A) 8.84 X 10*3/uL (1.80-7.70); Neutrophils % (A) 83.5 %; Platelet Count 194 X 10*3/uL (140-440); RBC 3.19 X 10*6/uL (4.10-5.20); RDW 13.4 % (11.5-14.5); WBC 10.58 X 10*3/uL (4.50-10.00)
--- NOTE | 2021-09-06 12:17 | P.PN ---
Subjective HISTORY OF PRESENTING ILLNESS This is a pleasant 86-year-old who is seen for preop clearance. She has a history of coronary artery disease with prior CABG as well as stenting, carotid artery stenosis status post carotid endarterectomy, CVA, DVT, anemia, hypertension, hyperlipidemia, tobacco abuse, PAD, ischemic cardiomyopathy with ejection fraction 35-40% and moderate to severe mitral regurgitation by echo 2014. Patient had previously followed with Dr. Armando however it has been approximately 4 years since last seen. She states that she has been doing fairly well from a cardiac standpoint and denies any chest pain, pressure, shortness breath. She is able to walk up a flight of stairs without stopping and without any angina or dyspnea. She has not had any recent cardiac workup. Unfortunately she has been having episodes of disequilibrium where she will feel the room spinning around her. This has been attributed to vertigo and she was recently seen in emergency department 08/27/2021 and was prescribed Antivert. She also had a CTA which showed 60% stenosis of the left internal carotid artery however no other significant disease. She was discharged home and unfortunately had a fall laded to the room spinning around her and broke her right hip. She denies any actual lightheadedness or syncope. EKG shows normal sinus rhythm, nonspecific 0.[address] depressions in the inferior leads. Blood work shows white blood cell 14.3, hemoglobin 12.5, platelets 276, BUN 22, creatinine 0.7, AST 24, ALT 16. 09/06/2021 Patient seen and examined resting comfortably laying flat in bed in no acute distress. She is postoperative day #1 status post trochanteric IM nailing. She is complaining of some postsurgical pain in the right hip and leg. She has no symptoms of chest discomfort or shortness of breath. Echocardiogram obtained revealed improved LV systolic function with ejection fraction 50-55%, moderate to severe MR and mild aortic stenosis with mean gradient of 16 mmHg. Blood pressure 156/63 heart rate 92 afebrile maintaining oxygen saturation on room air. Laboratory data reviewed. PHYSICAL EXAMINATION CONSTITUTIONAL: No apparent distress, frail HEENT: Head is normocephalic. Pupils are equal, round. Sclerae anicteric. Mucous membranes of the mouth are moist. No JVD. +left carotid bruit. CHEST EXAMINATION: Lungs are clear to auscultation. No chest wall tenderness is noted on palpation or with deep breathing. HEART EXAMINATION: Regular rate and rhythm. S1, S2 heard. +3/6 systolic murmur, no gallops or rub. EXTREMITIES: 2+ peripheral pulses, no lower extremity edema and no calf tenderness. ASSESSMENT 1. Preop clearance 2. Status post right hip fracture 3. Fall, appears related to vertigo. No syncopal or near syncopal events 4. Coronary artery disease status post CABG, PCI 5. Ischemic cardiomyopathy 6. Moderate to severe mitral regurgitation 7. Tobacco abuse 8. PAD 9. Carotid stenosis, 60% by recent CTA 10. Vertigo 11. History of stroke 12. History of DVT 13. Hypertension 14 hyperlipidemia PLAN Plavix can be discontinued indefinitely. Stable from a cardiac perspective. Follow-up with Dr. Lopez upon discharge, we will follow along as needed. Nurse Practitioner note has been reviewed, I agree with a documented findings and plan of care. Patient was seen and examined. Objective - Vital Signs Vital signs: Vital Signs Temp 98.3 F 09/06/21 07:19 Pulse 92 09/06/21 07:19 Resp 18 09/06/21 07:19 BP 156/63 09/06/21 07:19 Pulse Ox 97 09/06/21 07:19 Intake & Output 09/05/21 09/06/21 09/06/21 18:59 06:59 18:59 Intake Total 1051 Output Total 2385 1200 Balance -1334 -1200 Weight 43.545 kg Intake: IV 1051 Output: Urine 2335 1200 Estimated Blood Loss 50 Other: Voiding Method Indwelling Catheter Indwelling Catheter Indwelling Catheter - Labs CBC & Chem 7: 09/06/21 06:25 09/03/21 13:00 Labs: Abnormal Lab Results - Last 24 Hours (Table) 09/06/21 Range/Units 06:25 WBC 10.58 H (4.50-10.00) X 10*3/uL RBC 3.19 L (4.10-5.20) X 10*6/uL Hgb 9.5 L (12.0-15.0) g/dL Hct 31.3 L (37.2-46.3) % MCV 98.1 H (80.0-97.0) fL MCHC 30.4 L (32.0-37.0) g/dL Neutrophils # 8.84 H (1.80-7.70) X 10*3/uL Lymphocytes # 0.76 L (0.90-5.00) X 10*3/uL
[2021-09-06] MEDS: lisinopriL 5 MG TAB PO SCH (21:00)
[2021-09-06] MEDS: PRAVASTATIN SODIUM 20 MG TAB PO SCH (21:00)
[2021-09-06] MEDS: SENNOSIDES-DOCUSATE SODIUM 1 EACH TAB PO SCH (21:01)
--- NOTE | 2021-09-06 21:45 | PN ---
PROGRESS NOTE 66-year-old white female, status post hip surgery, having no chest pain, shortness of breath. No lightheadedness, dizziness, syncope. PT OT will be done. Possible discharge home tomorrow. O2 is 90% on 3 L and temp 98.9, pulse 88, respiratory 18 to 20. Cardiovascular S1, S2. Lungs wheezes x4. Cardiology saw the patient. Says her ejection fraction is 50 to 55% and mild to moderate mitral regurgitation. Hematology negative Homans. Psych: Fair mood and affect. Continue current treatment. Follow up in the next 24 to 48 hours for discharge to rehab center. Plavix has been discontinued. MMODL / IJN: [id number] /
[2021-09-07] MEDS: HEPARIN SODIUM,PORCINE/PF 5,000 UNIT/0.5 ML SYRINGE SQ SCH ×4 (00:03→23:56)
[2021-09-07] MEDS: HYDROcodone/APAP 10-325MG 1 EACH TAB PO PRN ×3 (02:44→18:14)
[2021-09-07] MEDS: LEVOTHYROXINE 25 MCG TAB PO SCH (05:29)
[2021-09-07] MEDS: NICOTINE 14MG/24HR PATCH TRANSDERM SCH (08:38)
[2021-09-07] MEDS: METOPROLOL SUCCINATE (ER) 50 MG TAB.ER.24H PO SCH (08:38)
[2021-09-07] MEDS: ASPIRIN 81 MG PO SCH (08:38)
[2021-09-07] MEDS: HYDROmorphone 1 MG/ML 1 ML SYRINGE IVP PRN ×2 (08:48→16:06)
--- NOTE | 2021-09-07 10:18 | P.PN ---
Subjective Progress Note Date: 09/07/21 Principal diagnosis: s/p IM nail right IT femur fracture Patient was examined today at bedside, she is resting in her hospital bed. She states that the pain is currently controlled with current medication. Urinary catheter still in place. She denies any headaches, lightheadedness, chest pain or shortness of breath. Objective - Vital Signs Vital signs: Vital Signs Temp 98.3 F 09/07/21 07:59 Pulse 74 09/07/21 07:59 Resp 16 09/07/21 07:59 BP 143/62 09/07/21 07:59 Pulse Ox 96 09/07/21 08:55 Intake & Output 09/06/21 09/07/21 09/07/21 18:59 06:59 18:59 Output Total 900 1300 Balance -900 -1300 Output: Urine 900 1300 Other: Voiding Method Indwelling Catheter Indwelling Catheter Indwelling Catheter - Exam Right lower extremity: The foam dressings are in place, there is no saturation appreciated. There is minimal soft tissue swelling and ecchymosis surrounding the medial and lateral aspects of the incision. Calf is soft, no tenderness with palpation. Plantar flexion, dorsiflexion, EHL, FHL are intact. Sensory exam to light touch throughout the extremity is intact, dorsal pedis pulses 2+. - Labs CBC & Chem 7: 09/06/21 06:25 09/03/21 13:00 Labs: Abnormal Lab Results - Last 24 Hours (Table) 09/06/21 Range/Units 06:25 WBC 10.58 H (4.50-10.00) X 10*3/uL RBC 3.19 L (4.10-5.20) X 10*6/uL Hgb 9.5 L (12.0-15.0) g/dL Hct 31.3 L (37.2-46.3) % MCV 98.1 H (80.0-97.0) fL MCHC 30.4 L (32.0-37.0) g/dL Neutrophils # 8.84 H (1.80-7.70) X 10*3/uL Lymphocytes # 0.76 L (0.90-5.00) X 10*3/uL Assessment and Plan Assessment: Postoperative day #2 status post IM nail right intertrochanteric femur fracture Plan: Pain control, continue with current medication. Try to avoid IV pain medication unless severe pain is noted Ferrous sulfate 325 mg twice a day has been started for anemia DVT prophylaxis, cardiology is recommending discontinuation of Plavix, she is currently on subcu medication in hospital. Planning for discharge on an oral medication, likely Eliquis 2.5mg Wound care, dressings are in good position and condition. Opti foam dressings can stay in place until 09/12/2021 Weight-bear as tolerated, PT/OT recommendations. Recommend walker at all times Other back office medical assistant recommendations Discussed with nursing to remove urinary catheter today Discharge planning: discussed with patient she is adamant about not going to rehab. She states that she will have family at home to aid in assistance, she i s hoping for discharge to home on 09/09/2021 Time with Patient: Less than 30
[2021-09-07 11:06] LABS: Basophils # (A) 0.04 X 10*3/uL (0.00-0.10); Basophils % (A) 0.4 %; Eosinophils % (A) 3.1 %; HCT 29.6 % (37.2-46.3); HGB 9.4 g/dL (12.0-15.0); Lymphocytes # (A) 0.92 X 10*3/uL (0.90-5.00); Lymphocytes % (A) 9.5 %; MCH 30.6 pg (27.0-32.0); MCHC 31.8 g/dL (32.0-37.0); MCV 96.4 fL (80.0-97.0); Mean Platelet Volume 10.4 fL (9.5-12.2); Monocytes # (A) 0.81 X 10*3/uL (0.20-1.00); Monocytes % (A) 8.4 %; Neutrophils # (A) 7.53 X 10*3/uL (1.80-7.70); Neutrophils % (A) 78.2 %; Platelet Count 240 X 10*3/uL (140-440); RBC 3.07 X 10*6/uL (4.10-5.20); RDW 13.2 % (11.5-14.5); WBC 9.64 X 10*3/uL (4.50-10.00)
[2021-09-07 11:09] LABS: Albumin 2.9 g/dL (3.8-4.9); Albumin/Globulin Ratio 1.26 (1.60-3.17); Anion Gap 8.1 mmol/L (4.00-12.00); Calcium 8.2 mg/dL (8.7-10.3); Carbon Dioxide 23.9 mmol/L (21.6-31.8); Globulin 2.3 g/dL (1.6-3.3); Non-African American GFR(CKD) 88.9 (60.0-200.0); Potassium 4.3 mmol/L (3.5-5.5); Total Bilirubin 0.3 mg/dL (0.30-1.20); Total Protein 5.2 g/dL (6.2-8.2)
[2021-09-07] MEDS: FERROUS SULFATE 325 MG TAB PO SCH ×2 (11:12→17:24)
[2021-09-07] MEDS: PRAVASTATIN SODIUM 20 MG TAB PO SCH (20:17)
[2021-09-07] MEDS: lisinopriL 5 MG TAB PO SCH (20:18)
[2021-09-07] MEDS: SENNOSIDES-DOCUSATE SODIUM 1 EACH TAB PO SCH (20:18)
[2021-09-08] MEDS: HYDROmorphone 1 MG/ML 1 ML SYRINGE IVP PRN (05:32)
[2021-09-08] MEDS: LEVOTHYROXINE 25 MCG TAB PO SCH (05:33)
[2021-09-08 07:19] VITALS: BP 155/63; PULSE 83; RESP 18; TEMP 98.3
[2021-09-08] MEDS: FERROUS SULFATE 325 MG TAB PO SCH (07:40)
[2021-09-08] MEDS: NICOTINE 14MG/24HR PATCH TRANSDERM SCH (07:40)
[2021-09-08] MEDS: ASPIRIN 81 MG PO SCH (07:40)
[2021-09-08] MEDS: HEPARIN SODIUM,PORCINE/PF 5,000 UNIT/0.5 ML SYRINGE SQ SCH (07:40)
[2021-09-08] MEDS: METOPROLOL SUCCINATE (ER) 50 MG TAB.ER.24H PO SCH (07:40)
[2021-09-08] MEDS: HYDROcodone/APAP 10-325MG 1 EACH TAB PO PRN ×2 (07:49→12:57)
--- NOTE | 2021-09-08 09:43 | P.PN ---
Subjective Progress Note Date: 09/08/21 Principal diagnosis: s/p IM nail right IT femur fracture Patient was examined today at bedside, she is resting in her hospital bed. She states that the pain is currently controlled with current medication. Patient is planning for rehab at discharge after discussion with the family. She denies any headaches, lightheadedness, chest pain or shortness of breath. Objective - Vital Signs Vital signs: Vital Signs Temp 98.3 F 09/08/21 07:18 Pulse 83 09/08/21 07:18 Resp 18 09/08/21 07:18 BP 155/63 09/08/21 07:18 Pulse Ox 93 L 09/08/21 07:18 Intake & Output 09/07/21 09/08/21 09/08/21 18:59 06:59 18:59 Output Total 450 Balance -450 Output: Urine 450 Uretheral (Cha) 400 Other: Voiding Method Indwelling Catheter Bedside Commode # Voids 1 # Bowel Movements 1 - Exam Right lower extremity: The foam dressings are in place, there is no saturation appreciated. There is minimal soft tissue swelling and ecchymosis surrounding the medial and lateral aspects of the incision. Calf is soft, no tenderness with palpation. Plantar flexion, dorsiflexion, EHL, FHL are intact. Sensory exam to light touch throughout the extremity is intact, dorsal pedis pulses 2+. - Labs CBC & Chem 7: 09/07/21 06:36 09/07/21 06:36 Labs: Abnormal Lab Results - Last 24 Hours (Table) 09/07/21 09/07/21 Range/Units 06:36 06:36 RBC 3.07 L (4.10-5.20) X 10*6/uL Hgb 9.4 L (12.0-15.0) g/dL Hct 29.6 L (37.2-46.3) % MCHC 31.8 L (32.0-37.0) g/dL BUN 8.0 L (9.0-27.0) mg/dL Creatinine 0.5 L (0.6-1.5) mg/dL Calcium 8.2 L (8.7-10.3) mg/dL Total Protein 5.2 L (6.2-8.2) g/dL Albumin 2.9 L (3.8-4.9) g/dL Albumin/Globulin Ratio 1.26 L (1.60-3.17) g/dL Assessment and Plan Assessment: Postoperative day #3 status post IM nail right intertrochanteric femur fracture Plan: Pain control, will adjust [place] 10 mg/325 mg to 1 tablet every 4 hours of discharge Continue ferrous sulfate 325 mg twice a day DVT prophylaxis, will utilize heparin 5000 units every 12 for the next 30 days Wound care, dressings are in good position and condition. Opti foam dressings can stay in place until 09/12/2021 Weight-bear as tolerated, PT/OT recommendations. Recommend walker at all times Other medical bill processor recommendations Discharge planning: Hopeful discharged to rehab today Time with Patient: Less than 30
--- NOTE | 2021-09-08 10:27 | P.DS ---
Providers Date of admission: 09/03/21 12:45 Expected date of discharge: 09/08/21 Attending physician: Jimbo Pride Consults: 09/03/21 12:27 Consult Physician Urgent Consulting Provider: Marco Trinh Consult Reason/Comments: Surgical clearance, medical management Do you want consulting provider notified?: Yes 09/03/21 13:44 Consult Physician Routine Consulting Provider: Jared Mejia Consult Reason/Comments: cardiac clearance Do you want consulting provider notified?: Yes Primary care physician: Marco Trinh [facility] Course: Date of admission: 09/03/2021 Date of discharge: 09/08/2021 Admission diagnosis: Displaced right intertrochanteric femur fracture Discharge diagnosis: Same, status post intramedullary nail of right intertrochanteric femur fracture Attending physician: Dr. Pride Surgical procedures: Intramedullary nail right intertrochanteric femur fracture Brief history: Patient is a 86-year-old female who presented to [facility] on 09/03/2021 after falling at home injuring her right lower extremity. It was determined that the patient had a displaced right intertrochanteric femur fracture. Patient was admitted under our care with plan for surgical intervention. Consults were placed for both internal medicine and cardiology. She underwent surgery on 09/05/2021. Hospital course: Details of patient's surgery can be found in operative report. Patient tolerated the procedure well and was subsequently transported to orthopedic floor. Patient's orthopeidc and medical care was provided daily. Patient had daily laboratory tests performed for evaluation of overall blood counts. Patient had daily physical therapy to include strengthening range of motion as well as education with walker ambulation. Patient was treated with heparin for their postoperative DVT prophylaxis during their inpatient stay. Patient was noted to have a relatively uneventful postoperative course. Patient reported satisfactory pain control with oral pain medications by postoperative day 0. Patient showed satisfactory progress with physical therapy. Patient moved steadily through the program and had no difficulty meeting the goals by postoperative day 3. Given patient's otherwise satisfactory course and having met physical therapy goals, plan is to discharge patient rehab on postoperative day 3. Discharge condition/disposition: Patient will be discharged rehab in stable condition. Discharge medications: Instructions are given on resumption of patient's normal daily medications per primary care recommendation, in addition patient will be prescribed [place] 10 mg/325 mg, Senna S, heparin 5000 units . Discharge instructions: 1. Wound care and infection precautions, keep incision dry and covered while showering, no lotions, creams, moisturizers. No soaking, tubs, pools, hottubs. Do not scrub over the incision. 2. Weight-bear as tolerated with walker / cane until follow-up. 3. Ice and elevate when necessary. Do not exceed 20 minutes per hour with ice pack. 4. Utilize compression sleeve until seen at first follow up appointment. 5. Visiting nursing care. 6. Home physical therapy. 7. Pain meds and anticoagulants per prescription. 8. Pain medication has potential to cause constipation. Increase oral fluid and fiber intake. Contact primary care provider if you have not had a bowel movement within 48 hours after discharge 9. No anti-inflammatory medication until discussed at first post operative visit, this including Motrin, Aleve, Mobic, Diclofenac. 10. Follow up in office at 2 weeks postop with Conor Singh PA-C/Phil Turner 11. Follow up with your primary care doctor 7-10 days after discharge. 12. Contact [facility] with any questions, . Procedures: Intramedullary nail right intertrochanteric femur fracture Patient Condition at Discharge: Fair Plan - Discharge Summary New Discharge Prescriptions: New Sennosides/Docusate Sodium [Senna Plus 8.6-50 mg Softgel] 1 each PO DAILY PRN #15 capsule PRN Reason: Constipation Heparin Sodium,Porcine [Heparin Sodium] 5,000 unit SQ Q12HR #30 each HYDROcodone/APAP 10-325MG [[place] 10-325] 1 tab PO Q4HR PRN 3 Days #18 tab PRN Reason: Pain Discontinued Clopidogrel [Plavix] 75 mg PO DAILY HYDROcodone/APAP 10-325MG [[place] 10-325] 1 tab PO TID No Action Levothyroxine Sodium [Synthroid] 25 mcg PO DAILY Aspirin 81 mg PO DAILY Nitroglycerin Sl Tabs [Nitrostat] 0.4 mg SL Q5M PRN PRN Reason: Chest Pain Pravastatin Sodium [Pravachol] 20 mg PO HS Omeprazole Magnesium [PriLOSEC OTC] 20 mg PO DAILY PRN PRN Reason: Heartburn Metoprolol Succinate [Toprol XL] 50 mg PO DAILY Meclizine [Antivert] 25 mg PO TID PRN #15 tab PRN Reason: dizzy lisinopriL [Zestril] 5 mg PO HS Vit C/E/Zn/Coppr/Lutein/Zeaxan [Preservision Areds 2 Softgel] 1 cap PO BID Discharge Medication List Aspirin 81 mg PO DAILY 01/22/15 [History] Levothyroxine Sodium [Synthroid] 25 mcg PO DAILY 01/22/15 [History] Nitroglycerin Sl Tabs [Nitrostat] 0.4 mg SL Q5M PRN 01/22/15 [History] Pravastatin Sodium [Pravachol] 20 mg PO HS 08/21/15 [History] Omeprazole Magnesium [PriLOSEC OTC] 20 mg PO DAILY PRN 03/11/21 [History] lisinopriL [Zestril] 5 mg PO HS 03/11/21 [History] Metoprolol Succinate [Toprol XL] 50 mg PO DAILY 08/27/21 [History] Vit C/E/Zn/Coppr/Lutein/Zeaxan [Preservision Areds 2 Softgel] 1 cap PO BID 08/27/21 [History] Meclizine [Antivert] 25 mg PO TID PRN #15 tab 08/28/21 [Rx] HYDROcodone/APAP 10-325MG [[place]run 10-325] 1 tab PO Q4HR PRN 3 Days #18 tab 09/08/21 [Rx] Heparin Sodium,Porcine [Heparin Sodium] 5,000 unit SQ Q12HR #30 each 09/08/21 [Rx] Sennosides/Docusate Sodium [Senna Plus 8.6-50 mg Softgel] 1 each PO DAILY PRN #15 capsule 09/08/21 [Rx] Follow up Appointment(s)/Referral(s): Phil Stiles PAC [PHYSICIAN CENTRAL OFFICE EQUIPMENT ENGINEER] - 09/24/21 11:30 am Andrew Lopez DO [STAFF PHYSICIAN] - 2 Weeks Marco Trinh MD [Primary Care Provider] - 1-2 days [facility], [NON-STAFF] - Activity/Diet/Wound Care/Special Instructions: Orthopedic discharge instructions: 1. Weight-bear as tolerated, utilize walker all times 2. Okay to remove foam dressing on 09/12/2021, then utilized basic gauze bandage over yudith 3. Okay to remove yudith on 09/19/2021 4. Ice the lower extremity often, elevate to help with swelling 5. Heparin 5000 units every 12 for DVT prophylaxis 6. Plan for follow-up at [facility] in 2 weeks, please contact our office with any questions [phone] Discharge Disposition: TRANSFER TO SNF/ECF
--- NOTE | 2021-09-08 11:07 | PN ---
PROGRESS NOTE This 86-year-old white female is status post surgery for hip fracture. Dizziness improving. Pain improving. Go to rehab tomorrow. Temperature 98, oxygen 92 to 95 on room air, blood pressure 120s over 50s, respiratory rate 16 to 18. Cardiovascular: S1, S2. Lungs clear. GI soft. ASSESSMENT: 1. Femur fracture with a nail in the right IT. 2. Chronic obstructive pulmonary disease. 3. Dementia. 4. Hypertension. Current treatment. Sent to [facility] tomorrow. Dr. Marco Trinh will take care of her at [facility]. MMODL / IJN: [id number] /
== END 2021-09-08 13:16 | DRG 482 ==
LOC: EC 10:09 → 4SSUR 12:45
PROVIDERS: ADMIT Orthopaedic Surgery; ATTEND Orthopaedic Surgery
PROC: 0QS636Z Reposition Right Upper Femur with Intramedullary Internal Fixation Device, Percutaneous Approach (ICD-10-PCS; principal; 2021-09-05 08:00)
DX: S72.141A Displaced intertrochanteric fracture of right femur, initial encounter for closed fracture (principal); R42 Dizziness and giddiness; E03.9 Hypothyroidism, unspecified; E78.5 Hyperlipidemia, unspecified; F03.90 Unspecified dementia, unspecified severity, without behavioral disturbance, psychotic disturbance, mood disturbance, and anxiety; I10 Essential (primary) hypertension; F17.200 Nicotine dependence, unspecified, uncomplicated; H66.93 Otitis media, unspecified, bilateral; I25.10 Atherosclerotic heart disease of native coronary artery without angina pectoris; J44.9 Chronic obstructive pulmonary disease, unspecified; I25.5 Ischemic cardiomyopathy; I34.0 Nonrheumatic mitral (valve) insufficiency; I65.22 Occlusion and stenosis of left carotid artery; K21.9 Gastro-esophageal reflux disease without esophagitis; M19.90 Unspecified osteoarthritis, unspecified site; W01.0XXA Fall on same level from slipping, tripping and stumbling without subsequent striking against object, initial encounter; I73.9 Peripheral vascular disease, unspecified; Y93.01 Activity, walking, marching and hiking; Z20.822 Contact with and (suspected) exposure to COVID-19; I25.2 Old myocardial infarction; Z79.02 Long term (current) use of antithrombotics/antiplatelets; Z79.82 Long term (current) use of aspirin; Z79.890 Hormone replacement therapy; Z79.899 Other long term (current) drug therapy; Z86.718 Personal history of other venous thrombosis and embolism; Z86.73 Personal history of transient ischemic attack (TIA), and cerebral infarction without residual deficits; Z90.710 Acquired absence of both cervix and uterus; Z95.1 Presence of aortocoronary bypass graft; Z95.5 Presence of coronary angioplasty implant and graft; Y92.009 Unspecified place in unspecified non-institutional (private) residence as the place of occurrence of the external cause; Z98.890 Other specified postprocedural states
CPT/HCPCS: 72170; 73501; 80053; 81003; 84443; 85025; 85610; 85730; 86850; 86900; 86901; 87635; 93005; 93306; 94760; 96374; 96375; 99285

== ENCOUNTER → 2024-07-20 | Outpatient (CLI) | payer MEDICARE, OTHER ==
--- NOTE | 2024-07-20 16:58 | CT ---
EXAMINATION TYPE: CT chest abdomen wo con CT DLP: 240.9 mGycm, Automated exposure control for dose reduction was used. DATE OF EXAM: 07/20/2024 2:19 PM COMPARISON: CT thoracic spine 06/10/2020, CT chest 02/10/2015 CLINICAL INDICATION:Female, 89 years old with history of R07.9 CHEST PAIN R10.84 GENERALIZED ABDOMINA L PAIN; PHH, Left side rib pain, Left sternoclavicular pain x 1 year Technique: Multiple axial images of the chest and abdomen were obtained without intravenous contrast. Oral contrast was administered. This limits evaluation. Two-dimensional coronal and sagittal reconst ructions were obtained. Findings: CHEST: LUNGS/ PLEURA: Biapical pleural-parenchymal scarring. Moderate centrilobular emphysematous changes. N o focal consolidation, pneumothorax, or pleural effusion. Stable left upper lobe 5 mm pulmonary nodu le (series 4, image 21). Appears stable from 2015 exam and considered benign. Additional stable 2 mm right upper lobe pulmonary nodule from 2015 (series 4, image 23). Consider benign. AIRWAY: Patent and unremarkable.. HEART: Size within normal limits. Post-CABG changes . No pericardial effusion. Aortic valvular mitral anulus calcifications. MEDIASTINUM: No gross evidence of adenopathy. VASCULATURE: No aortic aneurysm. Moderate atherosclerotic calcification of the aorta and its branche s. Proximal left common carotid artery stent with additional stenting emanating from the left common carotid artery which may represent a bypass of the left subclavian artery. MUSCULOSKELETAL: No acute osseous abnormalities. Median sternotomy wires. Diffuse bone demineralizati on. Degenerative changes at the left sternoclavicular joint with some sclerosis. No aggressive osseou s lesion. SOFT TISSUES/LYMPH NODES: Unremarkable. LOWER NECK: Bilateral neck surgical clips identified. ABDOMEN: ABDOMEN LIVER: Unremarkable noncontrast appearance GALLBLADDER AND BILE DUCTS: Unremarkable noncontrast appearance PANCREAS: Unremarkable. SPLEEN: Unremarkable. ADRENAL GLANDS: Unremarkable. KIDNEYS AND URETERS: No evidence of hydronephrosis or renal calculus. Inferior right exophytic kidney 2.9 cm cyst. STOMACH AND BOWEL: Stomach. Duodenal diverticula containing enteric contrast. No focal bowel wall thi ckening or surrounding inflammatory changes. Moderate colonic stool burden. Enteric contrast reaches the mid small bowel. No evidence of bowel obstruction. PERITONEUM: No evidence of pneumoperitoneum or free fluid. VASCULATURE: Moderate atherosclerotic calcifications are present throughout the abdominal aorta and i ts branches. Infrarenal fusiform ectasia of the abdominal aorta measuring up to 1.8 cm. At least mode rate stenosis at the origin of the celiac axis and SMA and bilateral renal arteries secondary to calc ified plaque. MUSCULOSKELETAL: No acute osseous abnormalities. Diffuse bone demineralization. Mild levocurvature of the lumbar spine. LYMPH NODES: No gross evidence for lymphadenopathy. SOFT TISSUE/ABDOMINAL WALL: Unremarkable IMPRESSION: Limited examination due to lack of intravenous contrast. 1. No acute process within the chest or abdomen within limitations. 2. Moderate COPD changes. 3. Degenerative changes of the left sternoclavicular joint. [facility], , 07/20/2024 4:56 PM
== END | disposition home or self-care (01) ==
LOC: RADCTMAIN 13:23
PROVIDERS: ATTEND Family Medicine
DX: J44.9 Chronic obstructive pulmonary disease, unspecified (principal); R07.9 Chest pain, unspecified; R10.84 Generalized abdominal pain
CPT/HCPCS: 71250; 74150

== ENCOUNTER → 2025-02-28 | Outpatient (CLI) | payer MEDICARE, OTHER ==
[2025-02-28 20:53] LABS: Blood Urea Nitrogen 11.2 mg/dL (9.0-27.0); Carbon Dioxide 23.3 mmol/L (21.6-31.8); Chloride 104 mmol/L (96-109); Potassium 4.3 mmol/L (3.5-5.5); Sodium 139 mmol/L (135-145)
[2025-02-28 21:17] LABS: Basophils # (A) 0.05 X 10*3/uL (0.00-0.10); Basophils % (A) 0.5 %; Eosinophils # (A) 0.04 X 10*3/uL (0.04-0.35); Eosinophils % (A) 0.4 %; HCT 33.8 % (37.2-46.3); HGB 10.2 g/dL (12.0-15.0); Lymphocytes # (A) 1.19 X 10*3/uL (0.90-5.00); Lymphocytes % (A) 12.1 %; MCH 30.9 pg (27.0-32.0); MCHC 30.2 g/dL (32.0-37.0); MCV 102.4 FL (80.0-97.0); Mean Platelet Volume 9.6 FL (9.5-12.2); Monocytes # (A) 0.68 X 10*3/uL (0.20-1.00); Monocytes % (A) 6.9 %; NRBC Per 100 WBC 0 X 10*3/uL (0.00-0.01); Neutrophils % (A) 79.6 %; Platelet Count 434 X 10*3/uL (140-440); RDW 14.1 % (11.5-14.5); WBC 9.81 X 10*3/uL (4.50-10.00)
== END | disposition home or self-care (01) ==
LOC: LABWHC1 12:00
PROVIDERS: ATTEND Internal Medicine Interventional Cardiology
DX: Z01.812 Encounter for preprocedural laboratory examination (principal); I25.10 Atherosclerotic heart disease of native coronary artery without angina pectoris
CPT/HCPCS: 36415; 80051; 82565; 84520; 85025